=== PATIENT | female | born 1940 | race Caucasian/White ===

== ENCOUNTER 2019-06-19 15:28 | Outpatient (CLI) | payer MEDICARE, SELFPAY ==
--- NOTE | ~2019-06-19 | MM_ITS ---
EXAMINATION: MM screening brennan BI w diony HISTORY: Screening mammogram TECHNIQUE: Craniocaudal and mediolateral oblique 3-D tomosynthesis images were obtained and synthetic 2-D images were generated. CAD analysis was submitted and interpreted. COMPARISON: Comparison to multiple prior studies sequentially, with oldest reviewed study dated 11/2010. BREAST PARENCHYMAL COMPOSITION: Breast composed of scattered areas of fibroglandular density. FINDINGS: There is a focal mass in the upper outer quadrant of the right breast with developing calci fications. The left breast is stable without evidence for malignancy. IMPRESSION: 1. Left breast mass measuring 4 mm, upper outer quadrant with developing associated calcifications. 2. Additional mammographic views and possible breast ultrasound are recommended. BI-RADS Category 0: Incomplete: Needs additional imaging evaluation. Reviewed, dictated and finalized at location A. IMPRESSION: 1. Left breast mass measuring 4 mm, upper outer quadrant with developing associ ated calcifications. 2. Additional mammographic views and possible breast ultrasound are recommended . BI-RADS Category 0: Incomplete: Needs additional imaging evaluation.
== END 2019-06-19 15:29 | disposition home or self-care (01) ==
PROVIDERS: PCP Internal Medicine; Visit Provider Internal Medicine
DX: Z12.31 Encounter for screening mammogram for malignant neoplasm of breast (principal); R92.8 Other abnormal and inconclusive findings on diagnostic imaging of breast
CPT/HCPCS: 77063; 77067

== ENCOUNTER 2019-08-07 12:59 | Outpatient (CLI) | payer MEDICARE, SELFPAY ==
--- NOTE | ~2019-08-07 | MMUS_ITS ---
EXAMINATION: MM diagnostic mammo unilat RT, US breast RT limited HISTORY: Follow-up right breast mass and calcifications TECHNIQUE: Additional 3-D tomosynthesis images of the right breast were performed and synthetic 2-D i mages were generated. CAD analysis was submitted and interpreted. High resolution right breast ultras ound was performed. COMPARISON: 06/19/2019 FINDINGS: MAMMOGRAPHIC FINDINGS: There are scattered predominantly linear calcifications in the upper outer quadrant of the right [address]. There is ar 4 mm circumscribed radiolucent mass in the upper outer quadrant. No suspicious jake ectural distortion. ULTRASOUND: Limited right breast ultrasound: At 10:00, 6 cm from the nipple, there is a 3 mm cyst corresponding to the mass seen on ultrasound. No solid masses are identified. IMPRESSION: 1. Probable benign right breast calcifications. 3 mm simple cyst corresponding to the right breast ma ss. 2. Recommend 6 month follow-up diagnostic right mammogram. BI-RADS category 3, probably benign findings. Reviewed, dictated and finalized at location A. IMPRESSION: 1. Probable benign right breast calcifications. 3 mm simple cyst corresponding to the right breast mass. 2. Recommend 6 month follow-up diagnostic right mammogram. BI-RADS category 3, probably benign findings.
== END 2019-08-07 13:00 | disposition home or self-care (01) ==
LOC: ANHIMG 13:01
PROVIDERS: PCP Internal Medicine; Visit Provider Internal Medicine
DX: R92.8 Other abnormal and inconclusive findings on diagnostic imaging of breast (principal)
CPT/HCPCS: 76642; 77065

== ENCOUNTER → 2020-05-26 10:47 | Outpatient (CLI) | payer MEDICARE, SELFPAY ==
[2020-05-27 14:42] LABS: SARS-CoV-2 RNA PCR Negative
== END ==
PROVIDERS: PCP Internal Medicine; Visit Provider Internal Medicine
DX: R05 Cough (principal); Z20.822 Contact with and (suspected) exposure to COVID-19
CPT/HCPCS: C9803; U0003; U0005

== ENCOUNTER 2020-07-03 09:30 | Outpatient (CLI) | payer MEDICARE, SELFPAY ==
[2020-07-03 10:04] LABS: Basophils Absolute Auto 0.1 K/mm3 (0.0-0.1); Basophils Percent Auto 1.2 % (0.2-1.2); Eosinophils Absolute Auto 0.2 K/mm3 (0-0.3); Eosinophils Percent Auto 2.7 % (0-4.4); Hematocrit 43.5 % (37.0-47.0); Hemoglobin 14.4 g/dL (12.0-15.0); Immature Granulocyte Absolute 0.01 K/mm3 (0.00-0.031); Immature Granulocyte Percent A 0.2 % (0-0.5); Lymphocytes Absolute Auto 1.64 K/mm3 (0.9-3.2); Lymphocytes Percent Auto 27.7 % (18.3-44.2); Mean Corpuscular HGB Conc 33.1 g/dl (32-36); Mean Corpuscular Hemoglobin 28.6 pg (26-34); Mean Corpuscular Volume 86.3 fl (80-100); Mean Platelet Volume 9.9 fl (7.4-10.4); Monocytes Absolute Auto 0.7 K/mm3 (0.1-0.6); Monocytes Percent Auto 11.3 % (2.6-8.5); Neutrophils Absolute Auto 3.4 K/mm3 (1.3-6.7); Neutrophils Percent Auto 56.9 % (45.5-73.1); Platelet Count Result 201 k/mm3 (150-375); Red Blood Count 5.04 M/mm3 (4.2-5.4); Red Cell Distribution Width 13.4 % (11.5-14.5); White Blood Count 5.9 K/mm3 (4.5-10.0)
[2020-07-03 10:19] LABS: Alanine Aminotransferase 18 U/L (4-35); Albumin Level 3.9 g/dL (3.5-5.1); Alkaline Phosphatase 104 U/L (38-126); Anion Gap 2 mmol/L (8-16); Aspartate Amino Transferase 37 U/L (14-36); Bilirubin,Total 0.8 mg/dL (0.2-1.3); Blood Urea Nitrogen 13 mg/dL (7-17); Calcium 9.3 mg/dL (8.4-10.2); Carbon Dioxide 34 mmol/L (22-30); Chloride 103 mmol/L (98-107); Estimated Glomerular Filt Rate > 60; Glucose 137 mg/dL (65-105); Potassium 4.2 mmol/L (3.4-5.0); Sodium 139 mmol/L (137-145)
[2020-07-03 10:26] LABS: NT Pro B Type Natriuretic Pept 164 PG/ML (5-100)
== END 2020-07-03 09:31 | disposition home or self-care (01) ==
LOC: ANHLAB 09:35
PROVIDERS: PCP Internal Medicine; Visit Provider Internal Medicine Cardiovascular Disease
DX: R06.02 Shortness of breath (principal); I48.0 Paroxysmal atrial fibrillation; M79.89 Other specified soft tissue disorders
CPT/HCPCS: 36415; 80053; 83880; 84443; 85025

== ENCOUNTER 2020-07-04 12:15 | Outpatient (CLI) | payer MEDICARE, SELFPAY ==
--- NOTE | ~2020-07-04 | XR_ITS ---
XR chest 2V 07/04/2020 13:56 Indication: Shortness of breath. Dyspnea with exertion. Procedure: 2 view chest Comparison: 12/04/2018 Findings: Cardiomegaly with pulmonary vascular congestion. No focal air space disease, pulmonary david a, pleural effusion or suspected pneumothorax. Impression: 1: No acute cardiopulmonary disease. Reviewed, dictated and finalized at location B. Impression: 1: No acute cardiopulmonary disease.
--- NOTE | 2020-07-04 14:29 | WPDPFTINT ---
PFT Interpretation This is a pulmonary function test withspirometry, plethysmography and diffusing capacity. The test was performed and results interpreted in accordance with the 2019 and 2005 ATS/ERS Task Force guidelines respectively using the Global Lung Function Initiative-2012 reference equations. Patient demonstrated good effort and cooperation. Reproducibility criteria were met. The quality of the spirometry maneuver was Grade A. Findings: Spirometry: There is decreased maximal expiratory airflow at low lung volumes with a concave expiratory flow tracing. The contour the inspiratory flow tracing is normal. The FVC is 1.93 L, 72% predicted. The FEV1 is 1.24 L, 60% predicted. The FEV1: FVC ratio is 64%. Plethysmography: The total lung capacity is 5.75 L, 111% predicted. The functional residual capacity is 2.48 L, 83% predicted. The residual volume is 2.45 L, 102% predicted. Diffusing capacity: The absolute diffusion capacity is 11.1, 55% predicted. The diffusing capacity corrected for alveolar volume is 3.43, 83% predicted. Impression: There is a moderate obstructive abnormalityl. The lung volumes are normal. The absolute diffusing capacity is moderately decreased but normalizes when corrected for alveolar volume. There are no prior studies for comparison PFT Procedure Performed PFT Procedure Performed Plethysmography (Lung Vol) Diffusing Cap (DLCO) Spirometry w/o Bronchodil
== END 2020-07-04 12:16 | disposition home or self-care (01) ==
PROVIDERS: PCP Internal Medicine; Visit Provider Internal Medicine Cardiovascular Disease
DX: R06.02 Shortness of breath (principal); R94.2 Abnormal results of pulmonary function studies
CPT/HCPCS: 71046; 94375; 94726; 94729

== ENCOUNTER 2020-09-29 16:06 | Outpatient (CLI) | payer MEDICARE, SELFPAY ==
[2020-09-29 17:19] LABS: Anion Gap 8 mmol/L (8-16); Blood Urea Nitrogen 9 mg/dL (7-17); Calcium 9.1 mg/dL (8.4-10.2); Carbon Dioxide 28 mmol/L (22-30); Chloride 102 mmol/L (98-107); Estimated Glomerular Filt Rate > 60; Glucose 175 mg/dL (65-105); Sodium 138 mmol/L (137-145)
== END 2020-09-29 16:07 | disposition home or self-care (01) ==
PROVIDERS: PCP Internal Medicine; Visit Provider Nurse Practitioner Adult Health
DX: R60.0 Localized edema (principal)
CPT/HCPCS: 36415; 80048

== ENCOUNTER → 2020-11-24 09:47 | Outpatient (CLI) | payer MEDICARE, SELFPAY ==
[2020-11-25 01:23] LABS: SARS-CoV-2 RNA PCR Negative
== END ==
PROVIDERS: PCP Internal Medicine; Visit Provider Internal Medicine
DX: R05 Cough (principal); Z20.822 Contact with and (suspected) exposure to COVID-19
CPT/HCPCS: C9803; U0003; U0005

== ENCOUNTER 2020-11-24 16:01 | Emergency (ER) | payer MEDICARE, SELFPAY ==
--- NOTE | ~2020-11-24 | XR_ITS ---
EXAMINATION: XR chest 2V DATE: 11/24/2020 16:36 INDICATION: Shortness of breath. Productive cough. TECHNIQUE: Frontal and lateral views of the chest were obtained. COMPARISON: Chest 2 views 07/04/2020 FINDINGS: A calcified left lung nodule and calcified left hilar lymph nodes are consistent with old g ranulomatous disease. No pleural effusion or pneumothorax. Cardiomegaly is noted. IMPRESSION: 1. Cardiomegaly. Reviewed, dictated and finalized at location A. IMPRESSION: 1. Cardiomegaly.
[2020-11-24 16:11] VITALS: BP 187/83; PULSE 72; RESP 22; TEMP 36.8; O2SAT 95
--- NOTE | 2020-11-24 16:14 | ECG_ITS ---
Measurements Intervals [place] Rate: 71 P: 53 MI: 158 QRS: -6 QRSD: 82 T: 34 QT: 378 QTc: 413 Interpretive Statements SINUS RHYTHM ANTEROSEPTAL INFARCT, AGE INDETERMINATE CONSIDER INFERIOR INFARCT, AGE INDETERMINATE BASELINE ARTIFACT- I, II, III, AVR, AVL ABNORMAL ECG Electronically Signed On 11-24-2020 19:27:07 CDT by Gary Diana D.O.
[2020-11-24 16:38] LABS: Basophils Absolute Auto 0.1 K/mm3 (0.0-0.1); Basophils Percent Auto 1.2 % (0.2-1.2); Eosinophils Absolute Auto 0.4 K/mm3 (0-0.3); Eosinophils Percent Auto 4.7 % (0-4.4); Hematocrit 41.9 % (37.0-47.0); Hemoglobin 14.1 g/dL (12.0-15.0); Immature Granulocyte Absolute 0.02 K/mm3 (0.00-0.031); Immature Granulocyte Percent A 0.3 % (0-0.5); Lymphocytes Absolute Auto 1.98 K/mm3 (0.9-3.2); Mean Corpuscular HGB Conc 33.7 g/dl (32-36); Mean Corpuscular Hemoglobin 30.3 pg (26-34); Mean Corpuscular Volume 90.1 fl (80-100); Mean Platelet Volume 9.3 fl (7.4-10.4); Monocytes Percent Auto 13.5 % (2.6-8.5); Neutrophils Absolute Auto 4.2 K/mm3 (1.3-6.7); Neutrophils Percent Auto 54.3 % (45.5-73.1); Platelet Count Result 223 k/mm3 (150-375); Red Blood Count 4.65 M/mm3 (4.2-5.4); Red Cell Distribution Width 13.2 % (11.5-14.5); White Blood Count 7.6 K/mm3 (4.5-10.0)
[2020-11-24 17:10] LABS: Anion Gap 7 mmol/L (8-16); Blood Urea Nitrogen 10 mg/dL (7-17); Calcium 9.1 mg/dL (8.4-10.2); Carbon Dioxide 30 mmol/L (22-30); Chloride 103 mmol/L (98-107); Estimated CRCL calculation 70 ml/min; Estimated Glomerular Filt Rate > 60; Glucose 92 mg/dL (65-110); Sodium 140 mmol/L (137-145)
[2020-11-24 22:29] VITALS: BP 156/76; PULSE 73; O2SAT 91
[2020-11-24 22:52] VITALS: BP 176/91; PULSE 77; RESP 18; TEMP 37.2; O2SAT 98
[2020-11-24 22:54] VITALS: O2SAT 97
--- NOTE | 2020-11-24 23:27 | ED.URI ---
HPI - URI/Sore Throat General Chief Complaint: Shortness of Breath/Dyspnea Stated Complaint: diff breathing, covid tested this am. Time Seen by Provider: 11/24/20 22:49 Source: patient Mode of arrival: ambulatory Limitations: no limitations History of Present Illness HPI Narrative: Patient is a 80-year-old female complaining of cough, productive, clear sputum, nasal congestion and mild shortness of breath on exertion that started 1 week ago. Patient currently denies being short of breath. Patient denies any chest pain, abdominal pain, nausea, vomiting, diarrhea, fever or chills Related Data Home Medications Medication Instructions Recorded Confirmed latanoprost 0.005 % eye drops 1 drop EACH EYE DAILY 05/21/19 07/13/20 rivaroxaban 20 mg tablet 20 mg PO DAILY 05/21/19 07/13/20 timolol 0.5 % eye drops 1 drop EACH EYE Q12H 05/21/19 07/13/20 vit C 250 mg-vit E 90 mg-zinc 40 1 tablet PO BID 05/21/19 07/13/20 mg-copper 1 [id number] capsule Allergies Allergy/AdvReac Type Severity Reaction Status Date / Time No Known Allergies Allergy Verified 11/24/20 22:54 Review of Systems Review of Systems: All systems reviewed & are unremarkable except as noted in HPI and below Constitutional: Constitutional: Denies body ache(s), Denies chills, Denies excessive sweating, Denies fatigue, Denies fever(s), Denies headache(s), Denies lethargy, Denies malaise, Denies weakness and Denies weight loss Eyes: Eyes: Denies blurry vision, Denies change in vision and Denies loss of vision ENT: Denies dizziness, Denies ear discharge, Denies headache(s), Denies lip swelling, Denies epistaxis, Denies neck pain, Denies throat swelling and Denies tongue swelling Cardiovascular: Cardiovascular: Denies chest pain, Denies chest pain at rest, Denies chest pain with activity, Denies diaphoresis, Denies rapid heart rate, Denies edema, Denies irregular heart rhythm, Denies lightheadedness and Denies palpitations Respiratory: Respiratory: Denies chest congestion and Denies hemoptysis Gastrointestinal: Gastrointestinal: Denies abdominal pain, Denies melena, Denies hematochezia, Denies diarrhea, Denies nausea, Denies vomiting and Denies hematemesis Musculoskeletal: Musculoskeletal: Denies abnormal gait, Denies deformity, Denies joint swelling, Denies limited range of motion, Denies neck pain and Denies numbness Neurologic: Denies Abnormal speech present, Denies abnormal gait, Denies confusion, Denies dizziness, Denies headache(s), Denies focal weakness, Denies loss of vision, Denies numbness, Denies Other visual disturbances, Denies Sensory deficit (Neuro) and Denies weakness Psychiatric: Psychiatric: Denies confusion, Denies depression, Denies auditory hallucinations, Denies homicidal ideation and Denies suicidal ideation Endocrine: Endocrine: Denies cold intolerance, Denies excessive sweating, Denies fatigue, Denies heat intolerance and Denies palpitations Hematologic/Lymphatic: Hematologic/Lymphatic: Denies easy bleeding and Denies easy bruising Allergic/Immunologic: Allergic/Immunologic: Denies lip swelling, Denies throat swelling and Denies tongue swelling PMFSH Past Medical History Medical History Colonic polyp Family History Family History Mother Family history of glaucoma Family history of hearing loss, Onset Age: 98 Father Family history of diabetes mellitus in first degree relative Sibling Family history of macular degeneration Social History Social History Smoking status: Former smoker Second hand tobacco smoke exposure: Yes Smoking end date: 04/04/87 Alcohol intake: current Exam Const: General: cooperative, comfortable, no acute distress, well developed, alert and awake; No confusion Nutritional Appearance: obese Orientation/consciousness: or
[2020-11-25 01:16] VITALS: BP 147/89; PULSE 78; RESP 16; O2SAT 98
== END 2020-11-25 01:18 | disposition home or self-care (01) ==
PROVIDERS: Emergency Medicine; Emergency Provider Emergency Medicine; PCP Internal Medicine
DX: J06.9 Acute upper respiratory infection, unspecified (principal); Z86.010 Personal history of colon polyps; Z87.891 Personal history of nicotine dependence; R94.31 Abnormal electrocardiogram [ECG] [EKG]
CPT/HCPCS: 36415; 71046; 80048; 85025; 93005; 99284; C9803; U0003; U0005

== ENCOUNTER 2021-05-20 08:02 | Outpatient (CLI) | payer MEDICARE, SELFPAY ==
--- NOTE | 2021-05-27 21:26 | WPDSLEEPSTUD ---
Sleep Study Date of Study: 05/20/21 Ordering Provider: Dio Kramer MD Interpreting Physician: Susie Castelan DO Sleep Study Type: Split Polysomnogram Height: 1.65 m Weight: 112.945 kg Body Mass Index: 41.4 Neck Circumference (inches): 18 [place]: 4 Reason for Sleep Study Nighttime awakenings Sleep History The patient is a 81-year-old female with COPD, anxiety, hypertension, hypothyroidism, macular degeneration and glaucoma, GERD, paroxysmal AFib, pulmonary hypertension and morbid obesity that had a split night study ordered by her waredresser. The patient rarely awakens from sleep short of breath. She rarely awakens at night with heartburn, belching or cough. She denies snoring loud enough that others plane. She denies waking up gasping for air throughout the night. She occasionally has breathing problems at night observed by herself or others. She denies sweating excessively at night. She denies having heart palpitations or irregular heartbeats during the night. She frequently falls asleep during the day. She denies sleep paralysis, cataplexy and hypnagogic / hypnopompic hallucinations. She denies having nightmares. She occasionally remembers her dreams. She denies having thoughts racing through her mind. She occasionally feels sad or depressed. She frequently has anxiety. She denies noticing parts of her body jerk. She denies kicking during the night. She frequently has crawling aching feelings in her legs and frequently has leg pain during the night. She denies grinding her teeth during sleep but will rarely awakened with morning doff pain. She is frequently bothered by pain during the day. She frequently wakes up feeling stiff in the morning. She frequently wakes up with Sore a garrido muscles. She frequently wakes up with pain in her neck, spine and other joints. She goes to bed between 8 and 8:30 p.m. on the weekdays and between 9 and 10:00 p.m. on the weekends. She is unsure how long it takes her to fall asleep. She wakes up 2 or 3 times throughout the night. When she wakes up, she will watch television. She can take anywhere from 30 minutes to 2 hours to fall back asleep. She wakes up between 5 and 6:00 a.m. on weekdays and between 7 and 8:00 a.m. on the weekends. She typically gets 2 or 3 hours of sleep per night. She will stay in bed for 10-15 minutes after waking up in the morning. She currently lives alone. She denies consuming any caffeinated beverages within 2 hours of bedtime. She denies at engaging in physical exercise before bedtime. She will watch television and read before falling asleep. She drinks 2 caffeinated beverages per day. She quit smoking cigarettes 30 years ago. She denies alcohol and recreational drug use. [facility] Past Medical History Medical History Atrial fibrillation Colonic polyp Essential (primary) hypertension Gastro-esophageal reflux disease without esophagitis Hypothyroidism Type 2 diabetes mellitus without complications Family History Family History Mother Family history of glaucoma Family history of hearing loss, Onset Age: 98 Father Family history of diabetes mellitus in first degree relative Sibling Family history of macular degeneration Social History Social History Smoking status: Former smoker Second hand tobacco smoke exposure: Yes Smoking end date: 04/04/87 Alcohol intake: current Medications Home Medications Medication Instructions Recorded Confirmed Type metoprolol tartrate 25 mg tablet 25 mg PO BID #180 tablet 04/05/19 05/05/21 Rx alprazolam 0.5 mg tablet 0.5 mg PO BID PRN #40 tablet 04/06/19 05/05/21 Rx escitalopram oxalate 10 mg tablet 10 mg PO DAILY #90 tablet 04/06/19 05/05/21 Rx latanoprost 0.005 % eye drops 1 drop EACH EYE DAILY 05/21/19
[2021-05-28 16:35] VITALS: BMI 41.4
== END 2021-05-21 06:40 | disposition home or self-care (01) ==
LOC: ANHCSM 08:03
PROVIDERS: PCP Internal Medicine; Visit Provider Internal Medicine Pulmonary Disease
DX: G47.10 Hypersomnia, unspecified (principal); G47.33 Obstructive sleep apnea (adult) (pediatric)
CPT/HCPCS: 95811

== ENCOUNTER 2021-05-22 12:30 | Outpatient (CLI) | payer MEDICARE, SELFPAY ==
[2021-05-22 12:50] VITALS: PULSE 79; O2SAT 95
[2021-05-22 12:55] VITALS: PULSE 95; O2SAT 92
[2021-05-22 13:06] VITALS: PULSE 72; O2SAT 95
--- NOTE | 2021-05-22 13:06 | HOMEO2EVAL ---
Evaluation was performed at [facility] Home Oxygen Evaluation RC: Home Oxygen (O2) Evaluation Start: 05/22/21 13:05 Freq: Status: Active Protocol: RPE Activity Type Activity Date Activity User E-Sign Co-Sign Detail Recorded Client Recorded Date Recorded By Document 05/22/21 12:50 QUINTIN [id number] 05/22/21 13:06 QUINTIN Document 05/22/21 12:55 QUINTIN [email or web address] 05/22/21 13:06 QUINTIN Document 05/22/21 13:06 QUINTIN [id number] 05/22/21 13:06 QUINTIN 05/22/21 05/22/21 05/22/21 12:50 12:55 13:06 Home O2 Evaluation Test Phase Resting Exercise Resting Oxygen Delivery Room Air Room Air Room Air Pulse Oximetry (90-100 %) 95 92 95 Pulse Rate (60-100 beats/min) 79 95 72 Home Oxygen Evaluation Comments No home O2 needed at this time. Treatment Charges O2 Evaluation - Outpatient
== END 2021-05-22 12:31 | disposition home or self-care (01) ==
PROVIDERS: PCP Internal Medicine; Visit Provider Internal Medicine Pulmonary Disease
DX: R06.02 Shortness of breath (principal)
CPT/HCPCS: 94618

== ENCOUNTER 2021-06-30 16:20 | Emergency (ER) | payer MEDICARE, SELFPAY ==
--- NOTE | ~2021-06-30 | XR_ITS ---
EXAMINATION: XR knee LT min 4V DATE: 06/30/2021 17:22 INDICATION: Left calf pain. Left knee pain. TECHNIQUE: 4 views of left knee were obtained. COMPARISON: Left knee radiographs 08/07/2013 FINDINGS: There is varus angulation at the knee. No fracture. There is moderate osteoarthritis of med ial compartment and mild osteoarthritis of lateral and patellofemoral compartments. There is a small knee joint effusion. IMPRESSION: 1. Moderate left knee osteoarthritis. 2. Small left knee joint effusion. Reviewed, dictated and finalized at location A.
--- NOTE | ~2021-06-30 | US_ITS ---
EXAMINATION: US venous doppler [facility] DATE: 06/30/2021 17:16 INDICATION: Left lower limb pain. TECHNIQUE: Grayscale ultrasound images without and with compression and Doppler ultrasound images of the left lower extremity veins were obtained. COMPARISON: Ultrasound 12/05/2018 FINDINGS: The visualized portions of left common femoral vein, profunda (deep) femoral vein, femoral vein, popl iteal vein, peroneal veins, posterior tibial veins, and greater saphenous vein outflow are patent. IMPRESSION: 1. No deep venous thrombosis. Reviewed, dictated and finalized at location A.
[2021-06-30 16:23] VITALS: BP 153/104; PULSE 75; RESP 18; TEMP 36.9; O2SAT 100
--- NOTE | 2021-06-30 16:53 | ED.LOWEXIN ---
HPI - Extremity Injury (Lower) General Chief Complaint: Extremity Injury, Lower Stated Complaint: left leg pain Time Seen by Provider: 06/30/21 16:53 Source: patient Mode of arrival: ambulatory Limitations: no limitations History of Present Illness HPI Narrative: Patient is a 81-year-old female with a history of hypertension presenting to the emergency department for evaluation of left posterior knee pain over the past several weeks. Pain is aching in nature, sharp, worse with movement radiation into the left posterior knee. No associated leg swelling, bruising, redness. No linear streaking that the patient has noticed. No recent fall or injury. Patient states she has a primary care physician appointment scheduled, but was hesitant to bring this up due to the fact that it occurred many weeks ago. Patient states she decided to seek care today because she is having difficulty sleeping due to the pain. Patient states she is able to move the knee, denies any significant swelling or bruising. She denies fever, chills, nausea or vomiting. She reports a history of arthritis. She has a history of right knee replacement. She denies any numbness or weakness. She denies any limb lateral swelling, redness, warmth. No history of skin infection in the past. No wounds. Patient has been ambulatory but does report pain with ambulation. Patient is followed with Dr. Orona in the past. Patient denies any hip pain or lower back pain. Related Data Home Medications Medication Instructions Recorded Confirmed latanoprost 0.005 % eye drops 1 drop EACH EYE DAILY 05/21/19 06/25/21 rivaroxaban 20 mg tablet 20 mg PO DAILY 05/21/19 06/25/21 timolol 0.5 % eye drops 1 drop EACH EYE Q12H 05/21/19 06/25/21 vit C 250 mg-vit E 90 mg-zinc 40 1 tablet PO BID 05/21/19 06/25/21 mg-copper 1 [id number]-ivuyoc-zlaqcu capsule Allergies Allergy/AdvReac Type Severity Reaction Status Date / Time No Known Allergies Allergy Verified 06/25/21 10:43 Review of Systems Review of Systems: CONSTITUTIONAL: Denies fever, chills, or sweats. EYES: Denies visual changes, redness, or discharge. ENT: Denies rhinorrhea, congestion, sore throat, or otalgia. CARDIOVASCULAR: Denies chest pain, palpitations, or edema. RESPIRATORY: Denies cough or dyspnea. GASTROINTESTINAL: Denies abdominal pain, nausea, vomiting, or diarrhea. GENITOURINARY: Denies dysuria or hematuria. SKIN: Denies rash or itching. MUSCULOSKELETAL: Denies back pain, reports anterior and posterior left knee pain, denies current left thigh pain NEUROLOGIC: Denies headache, numbness, or weakness. [facility] Past Medical History Medical History Atrial fibrillation Colonic polyp Essential (primary) hypertension Gastro-esophageal reflux disease without esophagitis Hypothyroidism Type 2 diabetes mellitus without complications Family History Family History Mother Family history of glaucoma Family history of hearing loss, Onset Age: 98 Father Family history of diabetes mellitus in first degree relative Sibling Family history of macular degeneration Social History Social History Smoking status: Former smoker Second hand tobacco smoke exposure: Yes Smoking end date: 04/04/87 Alcohol intake: current Exam Narrative: GENERAL: Awake, alert, conversant HEAD: Normocephalic, atraumatic. EYES: PERRLA and EOMI. ENT: Nares clear, no rhinorrhea or epistaxis. Mucous membranes moist. NECK: Supple. CHEST: No respiratory distress, breathing even and non labored HEART: Regular rate, sinus rhythm ABDOMEN:Non distended, non tender EXTREMITIES: Pt able to range the left knee. Full active range of motion without limitation. Patella is midline. No tenderness on exam. Patient without significant crepitus, full flexion extension without limitation.
[2021-06-30] MEDS: traMADol HCL (*CRX) 50 MG TABLET 25 MG PO (18:18)
[2021-06-30] MEDS: predniSONE 20 MG TABLET 60 MG PO (18:19)
[2021-06-30 18:32] VITALS: BP 141/56; PULSE 78; RESP 14; O2SAT 98
[2021-06-30 18:34] VITALS: TEMP 36.9
== END 2021-06-30 18:34 | disposition home or self-care (01) ==
PROVIDERS: Emergency Provider Emergency Medicine; PCP Internal Medicine
DX: M19.112 Post-traumatic osteoarthritis, left shoulder (principal); M25.462 Effusion, left knee; I48.91 Unspecified atrial fibrillation; I10 Essential (primary) hypertension; E11.9 Type 2 diabetes mellitus without complications; E03.9 Hypothyroidism, unspecified; K21.9 Gastro-esophageal reflux disease without esophagitis; Z96.651 Presence of right artificial knee joint; Z86.010 Personal history of colon polyps; Z87.891 Personal history of nicotine dependence; Z79.01 Long term (current) use of anticoagulants; M79.605 Pain in left leg
CPT/HCPCS: 73564; 93971; 99284; A9270; J7512

== ENCOUNTER → 2021-09-02 09:03 | Outpatient (CLI) | payer MEDICARE, SELFPAY ==
--- NOTE | ~2021-09-02 | MR_ITS ---
EXAMINATION: MR knee LT wo con DATE: 09/02/2021 09:57 INDICATION: Left knee pain TECHNIQUE: Magnetic resonance imaging (MRI) of the left knee was performed without intravenous contra st. Sequences included coronal PD-weighted FSE, coronal PD-weighted FS FSE, sagittal T2-weighted FSE , sagittal PD-weighted FS FSE and axial PD weighted fat saturated FSE. COMPARISON: None. FINDINGS: Medial compartment: Complex tear of the medial meniscus extending from the anterior to the posterior horn with medial ext rusion of the small macerated appearing meniscal body. Extensive full/near full-thickness cartilage l oss throughout the anterior to central weightbearing medial femoral condyle with scattered mild corti neftali irregularity and subarticular edema-like signal change and prominent anterior two thirds of the m edial tibial plateau with early remodeling of the articular cortex additional mild subarticular edema -like signal change. Lateral compartment: Lateral meniscus is normal. Small region of deep chondral ulceration involving greater than 50% the c artilage thickness along the posterior rim of the lateral tibial plateau. Shallow chondral fissuring along the central aspect of the lateral tibial plateau. Patellofemoral compartment: Deep chondral ulceration at the central aspect of the patellar apical ridge and medial patellar facet with additional mild underlying subarticular edema-like signal change. Diffuse partial thickness tro chlear cartilage loss with generally smooth chondral surface and without degenerative subchondral donny nges. Ligaments and tendons: The anterior cruciate ligament demonstrates a normal angle relative to Blum[place]at line. It appears th ickened with increased intrasubstance signal surrounding intact appearing linear fibers with a celer y stalk appearance consistent with mucoid degeneration. Thickening and more prominent increased intr asubstance signal extending along the posterior cruciate consistent with a few lax appearing ligament fibers along the anterior margin consistent with at least partial tear. The medial collateral ligame nt and fibular collateral ligament complex are normal. Mild tendinopathy at the proximal distal kelly lar tendon. The quadriceps tendon is normal. The visualized medial and lateral hamstring tendons as w ell as the iliotibial band are normal. Fluid: Small knee joint effusion with fluid and mild synovitis at the suprapatellar pouch. No loose osteocho ndral bodies identified. Osseous/other: Additional mild osteoarthritis subarticular edema at the proximal tibiofibular articulation. No fract ure or abnormal marrow replacing process. IMPRESSION: 1. 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 2. Mild osteoarthritis in the lateral and patellofemoral compartments. 3. At least partial tear of the posterior cruciate ligament 4. Mucoid degeneration of the anterior cruciate ligament without definitive tear. Correlate with phys ical exam to assess for degree of functional integrity. Reviewed, dictated and finalized at location B. IMPRESSION: 1. Complex medial meniscal tear with severe osteoarthritis and extensive high-g rade chondromalacia in the medial compartment. 2. Mild osteoarthritis in the lateral and patellofemoral compartments. 3. At least partial tear of the posterior cruciate ligament 4. Mucoid degeneration of the anterior cruciate ligament without definitive tea r. Correlate with physical exam to assess for degree of functional integrity.
== END ==
PROVIDERS: PCP Internal Medicine; Visit Provider Nurse Practitioner
DX: M25.562 Pain in left knee (principal); S83.232A Complex tear of medial meniscus, current injury, left knee, initial encounter; M94.262 Chondromalacia, left knee; M17.12 Unilateral primary osteoarthritis, left knee; S83.522A Sprain of posterior cruciate ligament of left knee, initial encounter
CPT/HCPCS: 73721

== ENCOUNTER 2021-09-03 09:15 | Outpatient (CLI) | payer MEDICARE, SELFPAY ==
--- NOTE | ~2021-09-03 | US_ITS ---
EXAMINATION: US venous doppler [facility] DATE: 09/03/2021 09:46 INDICATION: Left lower limb pain TECHNIQUE: Grayscale ultrasound images without and with compression and Doppler ultrasound images of the left lower extremity veins were obtained. COMPARISON: 06/30/2021 FINDINGS: The visualized portions of left common femoral vein, profunda (deep) femoral vein, femoral vein, popl iteal vein, peroneal veins, posterior tibial veins, gastrocnemius vein and greater saphenous vein out flow remain patent. IMPRESSION: 1. No deep venous thrombosis in the left lower limb. Reviewed, dictated and finalized at location B.
== END 2021-09-03 09:16 | disposition home or self-care (01) ==
PROVIDERS: PCP Internal Medicine; Visit Provider Orthopaedic Surgery
DX: M79.605 Pain in left leg (principal)
CPT/HCPCS: 93971

== ENCOUNTER 2021-10-22 14:00 | Outpatient (RCR) | payer MEDICARE, SELFPAY ==
--- NOTE | 2021-09-24 15:22 | PTOPEVAL ---
PHYSICAL THERAPY INITIAL EVALUATION. Thank you for referring Annette Barone to [facility].? The patient is scheduled to be seen for therapy? 1x/week for 4 weeks. Please review, sign, date and return this plan of care MARGARITA. I agree with and certify that the following plan of care is medically necessary. Referring Physician Date Attending Provider: Carson Hyde APN *PT Outpatient Evaluation Start: 09/24/21 Evaluation Information Diagnosis L leg pain Onset ~2 months Additional Evaluation Detail Pt ambulates into the clinic using a wooden walking stick, she states she uses a rollator at home Subjective Information Pt reports L leg pain, mainly Query Text:As Reported By Patient/ behind the knee. She states Family sometime this goes down her calf or up the back of her thigh. Pt states sometime when her leg is propped up she has no pain, she reports most of her knee pain is when she is walking or getting in/out of a car. She states ice or heat both help for a little bit. Pain Assessment Left Knee(s) Reported Pain Level 2 Pain Description Pressure,With Movement Lowest Pain Intensity 0 Greatest Pain Intensity 10 Lumbar ROM Lumbar Flexion (0-90) 50 Lumbar Flexion Active Ankle Lumbar Extension (0-40) 30 Lateral Flexion able to reach 1in above Query Text:Active Hands to: lateral knee joint bilat Lateral Rotation Right (0-45) 30 Lateral Rotation Left (0-45) 30 Lumbar ROM 75% of Normal Lower Extremity Range of Motion Gross Lower Extremity Range of Motion R knee active flexion 105 Comments R knee active flexion 110 Lower Extremity Muscle Strength Testing Gross Lower Extremity Strength joey hips 4/5 R knee flexion/extension 4+/5 L knee flexion/extension 4/5 Muscle Length Testing Left Hamstring Length -30 Right Hamstring Length -30 Posture Lumbar Spine Posture Increased Lordosis Palpation Assessment Palpation along medial joint line, posterior knee, mild reports with moderate pressure on lumbar paraspinals Special Test-Spine Crossed Straight Leg Raise Test Negative Right,Negative Left Straight Leg Raise Test Negative Right,Negative Left Balance Assessment Timed
--- NOTE | 2021-10-22 14:40 | PTOPEVAL ---
PHYSICAL THERAPY PROGRESS REPORT AND DISCHARGE SUMMARY. Thank you for referring Annette Barone to [facility].? The patient is to be discharged from skilled therapy services at this time. Please review, sign, date and return this plan of care MARGARITA. I agree with and certify that the following plan of care is medically necessary. Referring Physician Date Attending Provider: Carson Hyde APN Assessment Status Discharge Evaluation Information Diagnosis L leg pain Onset ~2 months Subjective Information Pt states her back and knee Query Text:As Reported By Patient/ pain are the same as when she Family started therapy. She states it is hard to remember to do here exercises and not has done them very often. She reports leg pain along the lateral side of her leg. Pt states when walking up/down her hallway her leg feels at its best, she also reports increasing activity does not sound like the answer to her pain. Therapist noted excess fluid in leg this date, pt states she has compression socks but does not wear them. Pain Assessment Self Report Pain Assessment Left Knee(s) Reported Pain Level 8 Lowest Pain Intensity 3 Greatest Pain Intensity 8 Lower Extremity Range of Motion Gross Lower Extremity Range of Motion L knee active flexion 110 Comments L knee active flexion 118 Lower Extremity Muscle Strength Testing Gross Lower Extremity Strength joey hips 4/5 R knee flexion/extension 4+/5 L knee flexion/extension 4/5 L knee -18 deg from terminal knee extension with short sitting LAQ Palpation Assessment Palpation none reported Balance Assessment Time Up Go (TUG) Comments Initially: 15s with walking stick 10/22/21: 27s with walking stick 5 Time Sit to Stand 5 Time Sit to Stand Comments Initially: 45s without the use Query Text:Normative Data: If Greater of UEs Than 15 Seconds, 74% Increase Risk for 10/22/21: 38s with use of UEs, Recurrent Falls pt unable to complete single sit<>standing without UE support Gait Assessment Gait Pattern Wide Based Gait Gait Pattern Observed Decreased Stride
== END 2021-11-05 11:58 | disposition home or self-care (01) ==
LOC: ANHPT 14:00
PROVIDERS: PCP Internal Medicine; Referring Provider Nurse Practitioner; Visit Provider Nurse Practitioner
DX: M54.40 Lumbago with sciatica, unspecified side (principal)
CPT/HCPCS: 97110; 97161; 97530

== ENCOUNTER 2021-11-13 12:58 | Outpatient (CLI) | payer MEDICARE, SELFPAY ==
--- NOTE | ~2021-11-13 | XR_ITS ---
EXAMINATION: XR lg joint inject/asp w image DATE: 11/13/2021 14:03 INDICATION: Left knee pain. TECHNIQUE: A time-out was performed to verify the patient's name, date of , and procedure to b e performed. The procedure including the risks, benefits, and alternatives was discussed with the pat ient. Risks discussed included bleeding and infection. The patient understood the risks and agreed to proceed. The skin overlying the left proximal tibiofibular joint was prepped and draped in usual st erile fashion. Anesthetic was administered with 1% lidocaine subcutaneously. A 22 G needle was adva nced under fluoroscopic guidance into the joint. Subsequently, injectate consisting of 1 mL 40 mg/mL Kenalog and 1 mL 1% lidocaine was instilled. The needle was removed and the entry site was cleaned and dressed. There were no immediate complications. Fluoroscopy exposure time was 0.1 minutes. The t otal number of images was 1. FINDINGS: Real-time fluoroscopy demonstrates the needle in the left proximal tibiofibular joint. Elaina ent's pain prior to procedure:11/11. Patient's pain following the procedure: 05/14. IMPRESSION: 1. Fluoroscopy guided left proximal tibiofibular joint injection of local anesthetic and steroid with decrease in the patient's presenting pain. Reviewed, dictated and finalized at location A. IMPRESSION: 1. Fluoroscopy guided left proximal tibiofibular joint injection of local anest hetic and steroid with decrease in the patient's presenting pain.
== END 2021-11-13 12:59 | disposition home or self-care (01) ==
PROVIDERS: PCP Internal Medicine; Visit Provider Nurse Practitioner
DX: M25.562 Pain in left knee (principal)
CPT/HCPCS: 20610; 77002; J3301; Q9966

== ENCOUNTER 2022-04-22 08:25 | Outpatient (CLI) | payer MEDICARE, SELFPAY ==
--- NOTE | ~2022-04-22 | US_ITS ---
EXAMINATION: US art doppler w press LE BI DATE: 04/22/2022 09:16 INDICATION: Peripheral vascular disease, unspecified. TECHNIQUE: Segmental pressures and plethysmographic and Doppler waveforms of the brachial and lower e xtremity arteries were obtained. COMPARISON: None. FINDINGS: Right and left brachial artery pressures of 148 mm Hg and 138 mm Hg, respectively, are concordant (no rmal difference <= 30 mmHg). The right thigh pressures and ankle pressures could not be measured due to inability to cuff occlude the arteries. The right ankle-brachial index (CHRISTAL) could not be measured. The right great toe-brachia l index (TBI) is 0.95 (normal >= 0.65). Arterial Doppler waveforms are triphasic in common femoral ar moses and biphasic from superficial femoral artery to the ankle. The left thigh pressures and ankle pressures could not be measured due to inability to cuff occlude t he arteries. The left CHRISTAL could not be measured. The left TBI is 1.05. Arterial Doppler waveforms are at least triphasic in common femoral artery and biphasic from superficial femoral artery to the ankl e. IMPRESSION: 1. Normal TBIs and nondiagnostic ABIs. No significant arterial occlusive disease. Reviewed, dictated and finalized at location A. STRIAL PIPEFITTER JOURNEYMAN IMPRESSION: 1. Normal TBIs and nondiagnostic ABIs. No significant arterial occlusive diseas e.
== END 2022-04-22 08:26 | disposition home or self-care (01) ==
PROVIDERS: PCP Internal Medicine; Visit Provider Internal Medicine
DX: I73.9 Peripheral vascular disease, unspecified (principal)
CPT/HCPCS: 93923

== ENCOUNTER 2022-08-12 10:04 | Outpatient (CLI) | payer MEDICARE, SELFPAY ==
[2022-08-12 10:40] LABS: Anion Gap 5 mmol/L (8-16); Blood Urea Nitrogen 9 mg/dL (7-17); Carbon Dioxide 32 mmol/L (22-30); Chloride 100 mmol/L (98-107); Estimated Glomerular Filt Rate > 60; Glucose 130 mg/dL (65-110); Potassium 4.1 mmol/L (3.4-5.0); Sodium 137 mmol/L (137-145)
== END 2022-08-12 10:05 | disposition home or self-care (01) ==
LOC: ANHLAB 10:06
PROVIDERS: PCP Internal Medicine; Visit Provider Internal Medicine Cardiovascular Disease
DX: I48.0 Paroxysmal atrial fibrillation (principal); R06.02 Shortness of breath; M79.89 Other specified soft tissue disorders
CPT/HCPCS: 36415; 80048

== ENCOUNTER 2022-08-18 13:34 | Outpatient (CLI) | payer MEDICARE, SELFPAY ==
[2022-08-18 14:32] LABS: NT Pro B Type Natriuretic Pept 147 pg/mL (19.9-100)
== END 2022-08-18 13:35 | disposition home or self-care (01) ==
PROVIDERS: PCP Internal Medicine; Visit Provider Internal Medicine Cardiovascular Disease
DX: R06.02 Shortness of breath (principal); I48.0 Paroxysmal atrial fibrillation; M79.89 Other specified soft tissue disorders
CPT/HCPCS: 36415; 83880

== ENCOUNTER 2023-01-26 14:03 | Inpatient (IN) | payer MEDICARE, SELFPAY ==
[2023-01-26] VITALS (31 sets, daily range): BP systolic 86–157; BP diastolic 42–139; PULSE 81–157; RESP 14–32; TEMP 36.1–36.5; O2SAT 92–100; BMI 41.6
--- NOTE | ~2023-01-26 | US_ITS ---
EXAMINATION: US renal BI DATE: 01/27/2023 12:40 INDICATION: Acute kidney injury. TECHNIQUE: Multiple ultrasound grayscale images of the kidneys were obtained. COMPARISON: None. FINDINGS: Sensitivity is decreased by obesity. The right kidney measures 13.2 x 5.1 x 5.6 cm. The left kidney m easures 11.4 x 6.3 x 4.6 cm. The kidneys demonstrate normal parenchymal echogenicity. There is no hyd ronephrosis. The bladder is decompressed. IMPRESSION: 1. Normal kidneys. No hydronephrosis. Reviewed, dictated and finalized at location E.
--- NOTE | ~2023-01-26 | XR_ITS ---
XR chest 1V portable DATE: 01/29/2023 06:09 INDICATION: Shortness of breath. Acute renal insufficiency TECHNIQUE: Portable AP chest on 01/29/2023 at 0606 hours COMPARISON: Portable AP chest on 01/28/2023 at 1042 hours FINDINGS: Dual lumen right internal jugular central venous catheter tip is situated near the superior cavoatrial junction. Cardiomegaly. Aortic calcification and unfolding. Mild right pleural effusion. There are bilateral predominantly lower lung infiltrates and/or atelecta sis Diffuse osteopenia. IMPRESSION: Right internal jugular dialysis catheter tip near superior cavoatrial junction Cardiomegaly Bilateral predominantly lower lung infiltrates and/atelectasis, small right pleural effusion Reviewed, dictated and finalized at location A. IMPRESSION: Right internal jugular dialysis catheter tip near superior cavoatri al junction Cardiomegaly Bilateral predominantly lower lung infiltrates and/atelectasis, small right ple ural effusion
--- NOTE | ~2023-01-26 | XR_ITS ---
EXAMINATION: XR chest 1V portable DATE: 01/28/2023 08:10 INDICATION: Hypotension. TECHNIQUE: A single frontal view of the chest was obtained. COMPARISON: Chest 2 views 01/26/2023 FINDINGS: There is a small right pleural effusion. There is mild atelectasis at right lung base. A ca lcified left lung nodule and calcified left hilar lymph nodes are consistent with old granulomatous d isease. No pneumothorax. Cardiomegaly is noted. IMPRESSION: 1. Small right pleural effusion. 2. Cardiomegaly. Reviewed, dictated and finalized at location E.
--- NOTE | ~2023-01-26 | XR_ITS ---
XR chest 2V 01/26/2023 14:51 Indication: New onset of atrial fibrillation Procedure: AP and lateral views of the chest Comparison: Comparison to multiple prior studies sequentially, with oldest reviewed study dated 09/28. Findings: Cardiomegaly. No focal air space disease, pulmonary edema, pleural effusion or suspected pn eumothorax. There is atherosclerosis of the aorta. Impression: 1: No acute cardiopulmonary disease. Reviewed, dictated and finalized at location B. Impression: 1: No acute cardiopulmonary disease.
--- NOTE | ~2023-01-26 | XR_ITS ---
EXAMINATION: XR chest port-a-cath/central DATE: 01/28/2023 11:00 INDICATION: Central line placement. TECHNIQUE: A single frontal view of the chest was obtained on 2 radiographs. COMPARISON: Chest single view 01/28/2023 at 7:59 AM FINDINGS: Saige B lines are noted, consistent mild pulmonary edema. A calcified left lung nodule and calcified left hilar lymph nodes are consistent with old granulomatous disease. There is a small rig ht pleural effusion. No pneumothorax. Cardiomegaly is noted. A right internal jugular central venous catheter is seen with tip at the superior cavoatrial junction. IMPRESSION: 1. Central line tip at the superior cavoatrial junction. 2. Mild pulmonary edema. 3. Stable small right pleural effusion. 4. Cardiomegaly. Reviewed, dictated and finalized at location E.
--- NOTE | 2023-01-26 14:06 | ECG_ITS ---
Measurements Intervals [place] Rate: 127 P: [place]: 0 QRS: 170 QRSD: 94 T: 16 QT: 282 QTc: 411 Interpretive Statements ATRIAL FIBRILLATION WITH RAPID VENTRICULAR RESPONSE BASELINE ARTIFACT POSSIBLE RIGHT VENTRICULAR HYPERTROPHY [SOME/ALL OF: PROMINENT R IN V1, LATE TRANSITION, RAD, MARCELO, SSS] POOR R-WAVE PROGRESSION, CANNOT RULE OUT OLD aNTEROSEPTAL MYOCARDIAL INFARCTION COMPARED TO ECG 11/24/2020 16:29:28 ATRIAL FIBRILLATION NOW PRESENT Electronically Signed On 01-26-2023 20:32:57 CDT by Mary Hamilton M.D.
--- NOTE | 2023-01-26 15:42 | ED.ARRPALP ---
HPI - Arrhythmia/Palpitations General Chief Complaint: Arrhythmia/Palpitations Stated Complaint: afib rvr Time Seen by Provider: 01/26/23 14:36 History of Present Illness HPI narrative: 82-year-old female history of atrial fibrillation, hypertension, hypothyroidism, type 2 diabetes, CHF presents to the emergency room for evaluation of A-fib with RVR. Patient was at Dr. Hamilton's office having an echo completed when she was found to have heart rate in the 130s. On presentation to the emergency room, patient has no complaints of chest pain or palpitations. Related Data Home Medications Medication Instructions Recorded Confirmed latanoprost 0.005 % eye drops 1 drop ophthalmic (eye) DAILY 05/21/19 10/18/22 rivaroxaban 20 mg tablet (Xarelto) 20 mg PO DAILY 05/21/19 10/18/22 timolol 0.5 % eye drops 1 drop ophthalmic (eye) Q12H 05/21/19 10/18/22 vit C 250 mg-vit E 90 mg-zinc 40 1 tablet PO BID 05/21/19 10/18/22 mg-copper 1 vd-xwockx-vrxlal capsule (PreserVision AREDS-2) furosemide 40 mg tablet (Lasix) 40 mg PO QAM 07/08/21 10/18/22 potassium chloride 20 mEq 20 meq PO DAILY 07/08/21 10/18/22 tablet,extended release vitamin B complex (B 1 tablet PO DAILY 07/08/21 10/18/22 Complex-Vitamin B12 tablet) Allergies Allergy/AdvReac Type Severity Reaction Status Date / Time No Known Allergies Allergy Verified 10/18/22 10:29 Review of Systems Review of Systems: CONSTITUTIONAL: Denies fever, chills, or sweats. EYES: Denies visual changes, redness, or discharge. ENT: Denies rhinorrhea, congestion, sore throat, or otalgia. CARDIOVASCULAR: Denies chest pain, palpitations, reports lower extremity edema RESPIRATORY: Reports dyspnea. GASTROINTESTINAL: Denies abdominal pain, nausea, vomiting, or diarrhea. GENITOURINARY: Denies dysuria or hematuria. SKIN: Denies rash or itching. MUSCULOSKELETAL: Denies back pain, joint pain, or myalgia. NEUROLOGIC: Denies headache, numbness, dizziness, or weakness. PSYCHIATRIC: Denies anxiety or depression. [facility] Past Medical History Medical History Atrial fibrillation Colonic polyp Essential (primary) hypertension Gastro-esophageal reflux disease without esophagitis Glaucoma Hypothyroidism Type 2 diabetes mellitus without complications Surgical History Surgical History History of appendectomy History of right knee joint replacement Family History Family History Mother Family history of glaucoma Family history of hearing loss, Onset Age: 98 Father Family history of diabetes mellitus in first degree relative Sibling Family history of macular degeneration Social History Social History Smoking status: Former smoker Second hand tobacco smoke exposure: Yes Smoking end date: 04/04/87 Alcohol intake: current Substance use: never Lack of Transportation: No Lack of Food: Never True Current Housing: I Have Housing Concerned About Future Housing: No Difficulty Paying Gas/Electric Bills: No Difficulty Paying for Meds: No Currently Unemployed: No Education: High School Diploma/GED Difficulty w/ Childcare or Family Care: No Living arrangements: alone Occupation/Education: retired Gender identity (if verbalized by the patient): Female Exam Narrative: GENERAL: Well-appearing, well-nourished, no physical limitations, and in no acute distress. HEAD: Normocephalic, atraumatic. EYES: Conjunctivae normal, PERRLA and EOMI. CHEST: Clear to auscultation. No respiratory distress. No wheezes rales or rhonchi. HEART: Irregularly irregular and tachycardic. No murmur heard. Normal peripheral pulses. EXTREMITIES: Normal range of motion. +3 pitting edema. No clubbing or cyanosis SKIN: Warm, dry, no rash. No noted wounds NEURO: No
[2023-01-26] MEDS: METOPROLOL TARTRATE INJ 5 MG/5 ML VIAL IV PUSH (15:45)
[2023-01-26 15:52] LABS: Basophils Percent Auto 0.6 % (0.2-1.2); Eosinophils Absolute Auto 0.1 K/mm3 (0-0.3); Eosinophils Percent Auto 0.8 % (0-4.4); Hematocrit 45.4 % (37.0-47.0); Hemoglobin 14.3 g/dL (12.0-15.0); Immature Granulocyte Absolute 0.03 K/mm3 (0.00-0.031); Immature Granulocyte Percent A 0.4 % (0-0.5); Lymphocytes Absolute Auto 1.05 K/mm3 (0.9-3.2); Lymphocytes Percent Auto 14.7 % (18.3-44.2); Mean Corpuscular HGB Conc 31.5 g/dl (32-36); Mean Corpuscular Hemoglobin 29.9 pg (26-34); Mean Platelet Volume 9.9 fl (7.4-10.4); Monocytes Absolute Auto 0.8 K/mm3 (0.1-0.6); Monocytes Percent Auto 11.2 % (2.6-8.5); Neutrophils Absolute Auto 5.2 K/mm3 (1.3-6.7); Neutrophils Percent Auto 72.3 % (45.5-73.1); Platelet Count Result 152 k/mm3 (150-375); Red Blood Count 4.78 M/mm3 (4.2-5.4); Red Cell Distribution Width 18.1 % (11.5-14.5); White Blood Count 7.1 K/mm3 (4.5-10.0)
[2023-01-26 16:05] LABS: INR 1.3; Prothrombin Time 16.5 Seconds (11.1-14.7)
[2023-01-26 16:06] LABS: Partial Thromboplastin Time 28.8 SECONDS (22.3-36.8)
--- NOTE | 2023-01-26 16:06 | PC.NURSE ---
unable to get consistent bp and hr after metoprolol administration. provider notified and went to bedside. repeating monitor and manual bp. no further orders at this time.
--- NOTE | 2023-01-26 16:21 | ECG_ITS ---
Measurements Intervals [place] Rate: 115 P: [place]: 0 QRS: 183 QRSD: 101 T: 50 QT: 317 QTc: 439 Interpretive Statements ATRIAL FIBRILLATION WITH RAPID VENTRICULAR RESPONSE POSSIBLE RIGHT VENTRICULAR HYPERTROPHY [SOME/ALL OF: PROMINENT R IN V1, LATE TRANSITION, RAD, MARECLO, SSS] POOR R-WAVE PROGRESSION, PROBABLE OLD aNTEROSEPTAL MYOCARDIAL INFARCTION COMPARED TO ECG 01/26/2023 14:12:41 NO SIGNIFICANT CHANGES Electronically Signed On 01-26-2023 20:36:33 CDT by Mary Hamilton M.D.
[2023-01-26 17:02] LABS: Alanine Aminotransferase 23 U/L (6-35); Albumin Level 3.3 g/dL (3.5-5.1); Alkaline Phosphatase 119 U/L (38-126); Anion Gap 7 mmol/L (8-16); Aspartate Amino Transferase 39 U/L (14-36); Bilirubin,Total 1.7 mg/dL (0.2-1.3); Blood Urea Nitrogen 80 mg/dL (7-17); Calcium 9.5 mg/dL (8.4-10.2); Carbon Dioxide 27 mmol/L (22-30); Chloride 97 mmol/L (98-107); Estimated CRCL calculation 11 ml/min; Estimated Glomerular Filt Rate 9; Glucose 99 mg/dL (65-110); Magnesium 2.7 mg/dL (1.6-2.3); Potassium 5.6 mmol/L (3.4-5.0); Sodium 131 mmol/L (137-145)
[2023-01-26] MEDS: SODIUM CHLORIDE 0.9% IV 1,000 ML 999 ML IV CONT (17:15)
[2023-01-26 17:24] LABS: NT Pro B Type Natriuretic Pept 7840 pg/mL (19.9-100); Troponin I 0.511 ng/mL (0.000-0.034)
[2023-01-26] MEDS: AMIODARONE 360 MG/D5W 200 ML 360 MG/200 ML BAG 33.33 MG IV CONT (17:40)
[2023-01-26 19:43] LABS: Troponin I 0.461 ng/mL (0.000-0.034)
--- NOTE | 2023-01-26 20:12 | PM.IMHP ---
H&P: HPI History of Present Illness Date/Time: 01/26/23 20:12 Chief Complaint: SOB Narrative: This is an 82 yo female with PMHx significant for Obesity, A. fib, rate controlled, anticoagulated, hypothyroidism. Patient was sent over to the EDdue to worsening bilateral lower extremities edema, fatigue, sob. Patient was found to be tachycardic in ED with A.fib with RVR placed on Amiodarone drip. Patient denies fevers, rigors, chills, chest pain, no abdominal pain, no nausea, no vomiting. Preliminary work up was significant for BNP 7850, Bun 80, Cr 4.5.. Patient has been admitted for further evaluation management and treatment. XR chest 2V 01/26/2023 14:51 Indication: New onset of atrial fibrillation Procedure: AP and lateral views of the chest Comparison: Comparison to multiple prior studies sequentially, with oldest reviewed study dated? 09/28/2005. Findings: Cardiomegaly. No focal air space disease, pulmonary edema, pleural effusion or suspected pneumothorax. There is atherosclerosis of the aorta. Impression: 1: No acute cardiopulmonary disease Measurements Intervals? [place]? Rate: ? 115? P:? DC: ? 0? QRS:? 183 QRSD: ? 101? T:? 50 QT: ? 317? QTc:? 439? Interpretive Statements ATRIAL FIBRILLATION WITH RAPID VENTRICULAR RESPONSE POSSIBLE RIGHT VENTRICULAR HYPERTROPHY? [SOME/ALL OF: PROMINENT R IN V1, LATE TRANSITION, RAD, MARCELO, SSS] POOR R-WAVE PROGRESSION, PROBABLE OLD aNTEROSEPTAL MYOCARDIAL INFARCTION COMPARED TO ECG 01/26/2023 14:12:41 NO SIGNIFICANT CHANGES Electronically Signed On 01-26-2023 20:36:33 CDT by Mary Hamilton M.D. Review of Systems Review of Systems: SOB, LEG SWELLING, FATIGUE, PALPITATIONS Constitutional: Constitutional: Denies chills, Reports fatigue and Denies fever(s) Eyes: Eyes: Denies change in vision ENT: Denies dysphagia and Denies odynophagia Cardiovascular: Cardiovascular: Denies chest pain, Reports leg edema, Denies lightheadedness, Denies radiating jaw, neck or arm pain, Denies palpitations and Reports dyspnea Respiratory: Respiratory: Reports chest congestion, Denies cough and Denies excessive phlegm production Gastrointestinal: Gastrointestinal: Denies abdominal pain, Denies dyspepsia, Denies heartburn, Denies diarrhea, Denies nausea and Denies vomiting Genitourinary: Genitourinary: Denies dysuria Musculoskeletal: Musculoskeletal: Denies arthralgias and Denies joint swelling Integumentary/Breasts: Skin/Breast: Denies rash Neurologic: Denies vertigo, Denies dizziness, Denies focal weakness and Denies Sensory deficit (Neuro) Psychiatric: Psychiatric: Reports no additional psychiatric complaints and Reports as per HPI Endocrine: Endocrine: Denies cold intolerance, Denies fatigue, Denies flushing, Denies heat intolerance, Denies polyphagia, Denies polydipsia and Denies palpitations Hematologic/Lymphatic: Hematologic/Lymphatic: Reports no additional hematologic/lymphatic complaints and Reports as per HPI Allergic/Immunologic: Allergic/Immunologic: Reports no additional allergic/immunologic complaints and Reports as per HPI PMFSH Past Medical History Medical History Atrial fibrillation Colonic polyp Essential (primary) hypertension Gastro-esophageal reflux disease without esophagitis Glaucoma Hypothyroidism Type 2 diabetes mellitus without complications Surgical History Surgical History History of appendectomy History of right knee joint replacement Family History Family History Mother Family history of glaucoma Family history
[2023-01-26 22:16] LABS: Troponin I 0.468 ng/mL (0.000-0.034)
--- NOTE | 2023-01-26 22:39 | ADMGEN ---
This patient, Annette Barone, was admitted to IMU Room 212-01. Patient/family oriented to hospital policies and general routines including ID bracelet, bed and alarms, visiting hours, pain management, procedures, bathroom and other care routines, personal items, smoking policy, room service/diet, and visiting hours. Information on how to activate the Rapid Response Team has been discussed. Patient/Family are encouraged to report perceived risks to care and to ask questions if they do not understand what they are told or what they should do.
[2023-01-26] MEDS: AMIODARONE 360 MG/D5W 200 ML 360 MG/200 ML BAG 16.67 MG IV CONT (23:12)
[2023-01-27] VITALS (22 sets, daily range): BP systolic 84–119; BP diastolic 33–84; PULSE 99–143; RESP 18–22; TEMP 35.6–36.6; O2SAT 93–98
--- NOTE | 2023-01-27 | ECHO_ITS ---
Patient Info Name: Annette Barone Age: 82 years : 1940 Gender: Female Ht: 64 in Wt: 242 lbs BSA: 2.28 m2 HR: 120 bpm BP: 100 / 59 mmHg Heart Rhythm: Atrial Fibrillation Technical Quality: Fair Exam Date: 01/27/2023 10:36 AM Exam Location: [facility] Patient Status: Inpatient Admit Date: 01/26/2023 Staff Ordering Physician: Nnamdi Matute MD Case Operator: Tamy Aguilera RDCS Attending Provider: Erika Ibarra MD Referring Physician: Giovani JOLLEY; Exam Type: CA echo dop color flow w con Study Info Indications - swelling R06.02 - Shortness of breath Complete two-dimensional, color flow and Doppler transthoracic echocardiogram is performed with contrast to opacify the left ventricle and to improve the deliniation of the left ventricle endocardial borders. Contrast/Agitated Saline Contrast/Ag. Saline: Definity Amount: 2.00 ml Administered By: Tamy Aguilera RDCS Existing IV Access: Yes IV Access Condition: patent with no signs of infiltration Summary 1. Normal left ventricular size and thickness with good contractility of all segments. Ejection fraction is 55-60%. Grade 2 diastolic dysfunction is present. 2. Right ventricular chamber dimension is moderately enlarged. Mild hypokinesis. 3. Left atrial chamber dimension is severely enlarged. 4. Right atrial chamber dimension is severely enlarged. 5. There is moderate mitral valve calcification. 6. There is mild mitral valve stenosis. MVA by PHT is 1.9 cm2. There is severe annular calcification. 7. There is mild to moderate tricuspid valve regurgitation. 8. No pulmonary hypertension, estimated pulmonary arterial systolic pressure is 34 mmHg. 9. Dilated inferior vena cava with no collapse upon inspiration consistent with significantly elevated right atrial pressure, 20 mmHg. 10. Atrial fibrillation. Left Ventricle Left ventricular chamber dimension is normal. Left ventricular systolic function is normal, estimated at 55-60%. There is no increased left ventricular wall thickness. Left ventricular septal wall motion is normal. The left ventricular diastolic function is grade II diastolic dysfunction. Right Ventricle Right ventricular chamber dimension is moderately enlarged. Mild hypokinesis. Right ventricular systolic function is reduced. Left Atria Left atrial chamber dimension is severely enlarged. Right Atria Right atrial chamber dimension is severely enlarged. Aortic Valve The aortic valve is trileaflet. There is mild aortic valve sclerosis. There is no aortic valve stenosis. There is no aortic valve regurgitation. Pulmonic Valve The pulmonic valve is normal. There is no pulmonic valve stenosis. There is trace pulmonic regurgitation. Mitral Valve The mitral valve has normal leaflets. There is mild mitral valve stenosis. MVA by PHT is 1.9 cm2. There is severe annular calcification. There is no mitral valve regurgitation. There is moderate mitral valve calcification. The mitral valve annulus is severely calcified. Tricuspid Valve The tricuspid valve leaflets are normal. There is no significant tricuspid valve stenosis. There is mild to moderate tricuspid valve regurgitation. No pulmonary hypertension, estimated pulmonary arterial systolic pressure is 34 mmHg. Pericardium/Pleural The pericardium appears normal. There is no pericardial effusion. Inferior Vena Cava Dilated inferior vena cava with no collapse upon inspiration consistent with significantly elevated right atrial pressure, 20
[2023-01-27 05:35] LABS: Hematocrit 43.2 % (37.0-47.0); Hemoglobin 13.7 g/dL (12.0-15.0); Mean Corpuscular HGB Conc 31.7 g/dl (32-36); Mean Corpuscular Hemoglobin 29.9 pg (26-34); Mean Corpuscular Volume 94.3 fl (80-100); Mean Platelet Volume 10.1 fl (7.4-10.4); Platelet Count Result 133 k/mm3 (150-375); Red Blood Count 4.58 M/mm3 (4.2-5.4); Red Cell Distribution Width 18.3 % (11.5-14.5); White Blood Count 6.8 K/mm3 (4.5-10.0)
[2023-01-27] MEDS: LEVOTHYROXINE SODIUM 112 MCG TABLET PO (05:42)
[2023-01-27 05:45] LABS: Anion Gap 9 mmol/L (8-16); Blood Urea Nitrogen 78 mg/dL (7-17); Calcium 8.9 mg/dL (8.4-10.2); Carbon Dioxide 24 mmol/L (22-30); Chloride 98 mmol/L (98-107); Estimated CRCL calculation 11 ml/min; Estimated Glomerular Filt Rate 9; Glucose 106 mg/dL (65-110); Potassium 5.4 mmol/L (3.4-5.0); Sodium 131 mmol/L (137-145)
--- NOTE | 2023-01-27 08:53 | PM.CNCAR ---
Assessment and Plan Assessment and plan (1) Hypotension: Code(s): I95.9 - Hypotension, unspecified Status: Acute Assessment and Plan: BP's 80's-90's, some lower, since admission. Unclear why patient is so hypotensive; her renal labs suggest use prerenal even though she is grossly volume overloaded. --Does not appear septic but we should check lactic acid level in blood cultures. --hold furosemide until --500 cc saline --If it does not improve, may need midodrine or transfer to ICU for pressors. (2) A-fib: Qualifiers: Atrial fibrillation type: unspecified Qualified Code(s): I48.91 - Unspecified atrial fibrillation Code(s): I48.91 - Unspecified atrial fibrillation Status: Acute Assessment and Plan: History of paroxysmal atrial fibrillation, asymptomatic but found to have AFib RVR despite her usual metoprolol. Currently on amiodarone drip with heart rate running about 110. --continue amiodarone drip for now --hold metoprolol if systolic blood pressure less than 100 mmHg --continue Xarelto but reduce dose to 15 mg daily to to her renal function --cancel echo since she had one done in our office 01/26/2023 (3) RONY (acute kidney injury): Code(s): N17.9 - Acute kidney failure, unspecified Status: Acute Assessment and Plan: Patient has developed acute kidney injury over the summer, unclear etiology. No change in her diuretics dose. Does have frequent loose bowel movements a may be try on that basis well. Hypotensive today, but not yesterday, so doubt that is the cause. --Dr. Cueva consulted --daily BMP (4) Chronic anticoagulation: Code(s): Z79.01 - retirement (current) use of anticoagulants Status: Acute Assessment and Plan: Takes Xarelto, will reduce dose to 15 mg daily due to acute kidney injury (5) IGOR (obstructive sleep apnea): Code(s): G47.33 - Obstructive sleep apnea (adult) (pediatric) Status: Acute Assessment and Plan: Has severe IGOR diagnosed in 2021, did not receive CPAP equipment. Also has moderate obstruction by PFTs in 2020. May benefit from treatment since she does have right ventricular enlargement and hypokinesis. (6) Elevated brain natriuretic peptide (BNP) level: Code(s): R79.89 - Other specified abnormal findings of blood chemistry Status: Acute Assessment and Plan: elevated pro-BNP noted, but CXR w/o CHF. Grossly volume overloaded but I am hesitant to diurese due to RONY. No pulmonary edema to push me toward diuretic tx. --Awaiting Dr. Cueva's opinion re: diuretic needs. 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 Even may need to change her Xarelto to warfarin because of this type of mitral valve disease. History of Present Illness History of Present Illness Consult date/time: 01/27/23 08:53 Reason For Visit: A-Fib with RVR Narrative: Annette ramírez is a 82-year-old female whom I was asked to see at the request of Herber Rosales APRN, for my advice and opinion regarding her AFib RVR, in consultation. I follow her in the office for her history of paroxysmal atrial fibrillation, mitral stenosis, hypertension, and she has a history of COPD and IGOR. The patient came to our office to get an echocardiogram and was in AFib RVR, heart rate in the 140s. She was sent to the emergency room her blood pressure was 200/100 mmHg. She is given a dose of IV Lopressor 5 mg but then became hypotensive. She was given IV fluids and amiodarone was started at 1 milligram/minute. She was admitted for AFib RVR, CHF exacerbation and acute kidney injury with a creatinine of 4.5. The patient states that overall she feels pretty good, no different from usual. She has chronic WALLER just walking from room to room which she states is no worse than usual. She has chronic lower ex
[2023-01-27] MEDS: LATANOPROST 0.005% OP SOLN 2.5 ML BTL 1 DROP EACH EYE (09:52)
[2023-01-27] MEDS: METOPROLOL TARTRATE 25 MG TABLET PO ×2 (09:52→21:32)
[2023-01-27] MEDS: PANTOPRAZOLE 40 MG TABLET PO (09:53)
[2023-01-27] MEDS: TIMOLOL MALEATE 0.5% OP SOLN 5 ML BOTTLE 1 DROP EACH EYE ×2 (09:53→23:54)
[2023-01-27] MEDS: AMIODARONE 360 MG/D5W 200 ML 360 MG/200 ML BAG 16.67 MG IV CONT ×2 (10:19→21:30)
[2023-01-27] MEDS: PERFLUTREN LIPID MICROSPHERES 1.5 ML VIAL DILUTED TO 10 ML TOTAL VOLUME IV PUSH (11:08)
--- NOTE | 2023-01-27 11:20 | P.CONNP_ITS ---
Assessment and Plan Assessment and plan (1) RONY (acute kidney injury): Code(s): N17.9 - Acute kidney failure, unspecified Status: Acute Assessment and Plan: * exact etiology not clear * creatinine normal in August 2022 * issues with hypotension now but was hypertensive on admission * no other previous symptoms either * no evidence of volume depletion noted (in fact, significant LE swelling/edema noted) * despite elevated BNP, no evidence of pulmonary edema either * follow-up on renal ultrasound * check urine studies and CPK * will proceed with serological evaluation as well * hold further diuretic therapy along with REG-I given ongoing hypotension in conjunction with renal dysfunction * follow repeat labs and UOP (2) Hyperkalemia: Code(s): E87.5 - Hyperkalemia Status: Acute Assessment and Plan: * presumably due to RONY, REG-I use, and supplemental potassium * medical management for now * follow repeat levels (3) Hypotension: Code(s): I95.9 - Hypotension, unspecified Status: Acute Assessment and Plan: * hypertensive on evaluation in ER * following IV metoprolol given in ER, she has been persistently hypotensive since... * trial of IVF boluses as tolerated * holding diuretics * if continues to persist, may need vasopressor therapy +/- midodrine (4) A-fib: Qualifiers: Atrial fibrillation type: unspecified Qualified Code(s): I48.91 - Unspecified atrial fibrillation Code(s): I48.91 - Unspecified atrial fibrillation Status: Acute Assessment and Plan: * known history * given suboptimal hemodynamics, currently on amiodarone gtt * already on anticoagulation * recent Echo results noted * Cardiology following (5) IGOR (obstructive sleep apnea): Code(s): G47.33 - Obstructive sleep apnea (adult) (pediatric) Status: Acute Assessment and Plan: * CPAP at nighttime I will continue follow patient with you while she remains hospitalized make further recommendations as needed. Thank you for allowing me to participate in care this patient. History of Present Illness Reason for Consult Consult date: 01/27/23 Reason for consult: acute renal failure Chief Complaint Chief complaint: A-Fib with RVR History of Present Illness Narrative: The patient is an 82-year-old female with a past medical history is outlined below who presented to [facility] Emergency room for further assessment of atrial fibrillation with RVR. On the day of admission, the patient came to the hospital for an outpatient echocardiogram and it was discovered that she was in atrial fibrillation with RVR with a heart rate in the 140s to 150s. She was instructed to go to the ER for further assessment given this finding. Prior to her presentation to the ER, she did report some mild shortness of breath as well as significant lower extremity edema/swelling. Workup and evaluation in the emergency room confirmed her atrial fibrillation with RVR and she was otherwise quite hypertensive with systolic BP is in the 200s. She was given a dose of IV Lopressor which did not actually improve her atrial fibrillation but unfortunately dropped her blood pressure quite significantly. She subsequently was given IV fluids with some mild improvement in her hypotension and then started on amiodarone drip for treatment of her atrial fibrillation with RVR. Routine blood tests were significant for a marked decline in her renal function with an elevated BUN and creatinine far above her baseline at 80 and 4.5 mg/dL, re
--- NOTE | 2023-01-27 11:20 | PM.CNNEP ---
Assessment and Plan Assessment and plan (1) RONY (acute kidney injury): Code(s): N17.9 - Acute kidney failure, unspecified Status: Acute Assessment and Plan: exact etiology not clear creatinine normal in August 2022 issues with hypotension now but was hypertensive on admission no other previous symptoms either no evidence of volume depletion noted (in fact, significant LE swelling/edema noted) despite elevated BNP, no evidence of pulmonary edema either follow-up on renal ultrasound check urine studies and CPK will proceed with serological evaluation as well hold further diuretic therapy along with REG-I given ongoing hypotension in conjunction with renal dysfunction follow repeat labs and UOP (2) Hyperkalemia: Code(s): E87.5 - Hyperkalemia Status: Acute Assessment and Plan: presumably due to RONY, REG-I use, and supplemental potassium medical management for now follow repeat levels (3) Hypotension: Code(s): I95.9 - Hypotension, unspecified Status: Acute Assessment and Plan: hypertensive on evaluation in ER following IV metoprolol given in ER, she has been persistently hypotensive since... trial of IVF boluses as tolerated holding diuretics if continues to persist, may need vasopressor therapy +/- midodrine (4) A-fib: Qualifiers: Atrial fibrillation type: unspecified Qualified Code(s): I48.91 - Unspecified atrial fibrillation Code(s): I48.91 - Unspecified atrial fibrillation Status: Acute Assessment and Plan: known history given suboptimal hemodynamics, currently on amiodarone gtt already on anticoagulation recent Echo results noted Cardiology following (5) IGOR (obstructive sleep apnea): Code(s): G47.33 - Obstructive sleep apnea (adult) (pediatric) Status: Acute Assessment and Plan: CPAP at nighttime I will continue follow patient with you while she remains hospitalized make further recommendations as needed. Thank you for allowing me to participate in care this patient. History of Present Illness Reason for Consult Consult date: 01/27/23 Reason for consult: acute renal failure Chief Complaint Chief complaint: A-Fib with RVR History of Present Illness Narrative: The patient is an 82-year-old female with a past medical history is outlined below who presented to [facility] Emergency room for further assessment of atrial fibrillation with RVR. On the day of admission, the patient came to the hospital for an outpatient echocardiogram and it was discovered that she was in atrial fibrillation with RVR with a heart rate in the 140s to 150s. She was instructed to go to the ER for further assessment given this finding. Prior to her presentation to the ER, she did report some mild shortness of breath as well as significant lower extremity edema/swelling. Workup and evaluation in the emergency room confirmed her atrial fibrillation with RVR and she was otherwise quite hypertensive with systolic BP is in the 200s. She was given a dose of IV Lopressor which did not actually improve her atrial fibrillation but unfortunately dropped her blood pressure quite significantly. She subsequently was given IV fluids with some mild improvement in her hypotension and then started on amiodarone drip for treatment of her atrial fibrillation with RVR. Routine blood tests were significant for a marked decline in her renal function with an elevated BUN and creatinine far above her baseline at 80 and 4.5 mg/dL, respectively. Furthermore, her potassium was mildly elevated and her proBNP was high at 7800. her initial troponins were mildly elevated but flat and her EKG confirmed her atrial fibrillation with RVR. On further questioning, she reports her baseline shortness of breath with exertional activities but denies any orthopnea or PND. She has known chronic lower extremity swelling / edema and she states
[2023-01-27] MEDS: SODIUM CHLORIDE 0.9% IV 1,000 ML 100 ML IV CONT (11:24)
[2023-01-27] MEDS: ONDANSETRON INJ 4 MG/2 ML VIAL IV PUSH (11:25)
--- NOTE | 2023-01-27 13:02 | IVDEFINITY ---
Prior to administration of IV Definity the patient was educated on the risks and benefits of the imaging enhancing agent including potential adverse side effects. The patient verbalized understanding. Allergies were verified. No exclusion criteria were identified and at least one of the following inclusion criteria were met: 1) physician request, 2) patient technically difficult to image (per the [place] [employer] guidelines of two or more segments not discernable within the apical view), or 3) questionable left ventricular function. ?
--- NOTE | 2023-01-27 16:11 | PM.IMPN ---
Progress Note: A&P Assessment and Plan (1) A-fib: Qualifiers: Atrial fibrillation type: unspecified Qualified Code(s): I48.91 - Unspecified atrial fibrillation Code(s): I48.91 - Unspecified atrial fibrillation Status: Acute Assessment and Plan: Currently on amiodarone drip Cardiology following Echocardiogram in a.m. (2) CHF (congestive heart failure): Qualifiers: Heart failure chronicity: chronic Code(s): I50.9 - Heart failure, unspecified Status: Acute Assessment and Plan: Diuresis on hold for hypotension Strict intake and output Daily weight Fluid restriction (3) RONY (acute kidney injury): Code(s): N17.9 - Acute kidney failure, unspecified Status: Acute Assessment and Plan: Likely cardiorenal since vs dehydration A component of pre renal azotemia as well Renal ultrasound in a.m. Holding lisinopril Nephrology following (4) IGOR (obstructive sleep apnea): Code(s): G47.33 - Obstructive sleep apnea (adult) (pediatric) Status: Acute Assessment and Plan: CPAP at nighttime (5) Gastro-esophageal reflux disease without esophagitis: Code(s): K21.9 - Gastro-esophageal reflux disease without esophagitis Status: Acute Assessment and Plan: PPI Plan DVT prophylaxis on Xarelto Subjective Date/time seen: 01/27/23 16:11 Review of Systems Review of Systems: SOB, LEG SWELLING, FATIGUE, PALPITATIONS Constitutional: Constitutional: Denies chills, Denies fatigue and Denies fever(s) Eyes: Eyes: Denies change in vision ENT: Denies dysphagia, Denies vertigo, Denies dizziness and Denies odynophagia Cardiovascular: Cardiovascular: Denies chest pain, Reports leg edema, Denies lightheadedness, Denies radiating jaw, neck or arm pain, Denies palpitations and Reports dyspnea Respiratory: Respiratory: Reports chest congestion, Denies cough, Denies excessive phlegm production and Reports dyspnea Gastrointestinal: Gastrointestinal: Denies abdominal pain, Denies dysphagia, Denies dyspepsia, Denies heartburn, Denies diarrhea, Denies nausea, Denies odynophagia and Denies vomiting Genitourinary: Genitourinary: Denies dysuria Musculoskeletal: Musculoskeletal: Denies arthralgias and Denies joint swelling Integumentary/Breasts: Skin/Breast: Denies rash Neurologic: Denies vertigo, Denies dizziness, Denies focal weakness and Denies Sensory deficit (Neuro) Psychiatric: Psychiatric: Reports no additional psychiatric complaints and Reports as per HPI Endocrine: Endocrine: Denies cold intolerance, Denies fatigue, Denies flushing, Denies heat intolerance, Denies polyphagia, Denies polydipsia and Denies palpitations Hematologic/Lymphatic: Hematologic/Lymphatic: Reports no additional hematologic/lymphatic complaints and Reports as per HPI Allergic/Immunologic: Allergic/Immunologic: Reports no additional allergic/immunologic complaints and Reports as per HPI Exam Narrative: lying in stretcher Const: General: comfortable, no acute distress, well developed, alert, awake, average body habitus and obese Nutritional Appearance: average body habitus and obese Orientation/consciousness: patient oriented x3 HENMT: Head: normal to inspection, normocephalic and atraumatic Ears: hearing grossly normal bilaterally Face/Nose/Sinus: normal facial exam Face and sinus: normal facial exam Eyes: General: appearance normal, both eyes and all related structures Pupils: Equal, round and reactive pupils present EOM: EOMs intact bilaterally Neck: Neck: full ROM, no lymphadenopathy and no JVD Thyroid: thyroid normal Lymphatic: no lymphadenopathy noted Resp: Effort & Inspection: normal respiratory effort, able to speak in complete sentences and tachypneic Auscultation: clear to auscultation bilaterally and crackles Cardio: Jugular venous distension: no JVD Rate: regular rate Rhythm: regular rhythm Heart sounds: S1 norm
[2023-01-27] MEDS: MIDODRINE HCL 2.5 MG TABLET 5 MG PO (16:23)
--- NOTE | 2023-01-27 16:45 | PC.NURSE ---
On 01/27/23, the student, April ROSALES [facility], provided care and completed [facility] documentation on this patient. I have reviewed the student's documentation and agree with the findings.
[2023-01-27] MEDS: SODIUM ZIRCONIUM CYCLOSILICATE 10 GM POWD.PACK PO (17:47)
[2023-01-27 20:50] LABS: Lactic Acid Reflex 1.8 mmol/L (0.7-2.0)
[2023-01-27 20:52] LABS: Anion Gap 10 mmol/L (8-16); Blood Urea Nitrogen 84 mg/dL (7-17); Calcium 9.2 mg/dL (8.4-10.2); Carbon Dioxide 22 mmol/L (22-30); Chloride 97 mmol/L (98-107); Estimated CRCL calculation 10 ml/min; Estimated Glomerular Filt Rate 8; Glucose 108 mg/dL (65-110); Potassium 5.4 mmol/L (3.4-5.0); Sodium 129 mmol/L (137-145)
[2023-01-28] VITALS (55 sets, daily range): BP systolic 62–237; BP diastolic 24–203; PULSE 90–153; RESP 14–21; TEMP 36.1–36.5; O2SAT 88–100
[2023-01-28 05:37] LABS: Basophils Percent Auto 0.1 % (0.2-1.2); Eosinophils Absolute Auto 0.1 K/mm3 (0-0.3); Eosinophils Percent Auto 0.9 % (0-4.4); Hematocrit 44.7 % (37.0-47.0); Hemoglobin 13.9 g/dL (12.0-15.0); Immature Granulocyte Absolute 0.04 K/mm3 (0.00-0.031); Immature Granulocyte Percent A 0.5 % (0-0.5); Lymphocytes Absolute Auto 1.33 K/mm3 (0.9-3.2); Lymphocytes Percent Auto 16.2 % (18.3-44.2); Mean Corpuscular HGB Conc 31.1 g/dl (32-36); Mean Corpuscular Hemoglobin 29.8 pg (26-34); Mean Corpuscular Volume 95.9 fl (80-100); Monocytes Absolute Auto 0.9 K/mm3 (0.1-0.6); Neutrophils Absolute Auto 5.9 K/mm3 (1.3-6.7); Neutrophils Percent Auto 71.3 % (45.5-73.1); Platelet Count Result 146 k/mm3 (150-375); Red Blood Count 4.66 M/mm3 (4.2-5.4); Red Cell Distribution Width 18.6 % (11.5-14.5); White Blood Count 8.2 K/mm3 (4.5-10.0)
[2023-01-28 05:41] LABS: Alanine Aminotransferase 21 U/L (6-35); Albumin Level 2.9 g/dL (3.5-5.1); Alkaline Phosphatase 92 U/L (38-126); Anion Gap 11 mmol/L (8-16); Aspartate Amino Transferase 44 U/L (14-36); Blood Urea Nitrogen 87 mg/dL (7-17); Calcium 9.2 mg/dL (8.4-10.2); Carbon Dioxide 22 mmol/L (22-30); Chloride 98 mmol/L (98-107); Creatine Kinase 151 U/L (30-135); Estimated CRCL calculation 9 ml/min; Estimated Glomerular Filt Rate 7; Glucose 82 mg/dL (65-110); Magnesium 2.6 mg/dL (1.6-2.3); Phosphorus 6.6 mg/dL (2.5-4.5); Potassium 5.4 mmol/L (3.4-5.0); Sodium 131 mmol/L (137-145)
[2023-01-28 05:48] LABS: Complement C3 66 mg/dL (88-165)
--- NOTE | 2023-01-28 06:00 | PC.NURSE ---
very little urine in reyes throughout noc. urine very thick, purulent appearance. Not enough to collect specimens. Catheter repositioned and flushed close to midnight.
[2023-01-28 06:30] LABS: Thyroid Stimulating Hormone Reflex 0.702 uIU/mL (0.465-4.68)
[2023-01-28] MEDS: LEVOTHYROXINE SODIUM 112 MCG TABLET PO (06:39)
--- NOTE | 2023-01-28 07:55 | ECG_ITS ---
Measurements Intervals [place] Rate: 83 P: ID: 0 QRS: 186 QRSD: 100 T: 102 QT: 346 QTc: 408 Interpretive Statements ATRIAL FIBRILLATION LOW QRS VOLTAGE ANTEROSEPTAL MYOCARDIAL INFARCTION [40+ ms Q WAVE IN V1-V4], PROBABLY OLD ABNORMAL ECG COMPARED TO ECG 01/26/2023 16:27:16 NO SIGNIFICANT CHANGES Electronically Signed On 01-28-2023 15:03:56 CDT by Dio Mohan M.D.
[2023-01-28] MEDS: SODIUM CHLORIDE 0.9% IV 500 ML 999 ML IV CONT (07:58)
--- NOTE | 2023-01-28 08:52 | WPDCNINT ---
Assessment and Plan Assessment and plan (1) Hypotension: Code(s): I95.9 - Hypotension, unspecified Status: Acute Assessment and Plan: Patient's hypotension is likely multifactorial with a combination of atrial fibrillation, congestive heart failure, cardiogenic and possible component of sepsis as patient does have little bit of cellulitis on her right leg. She is significantly volume overloaded hence will be given cautious amount of IV fluids. She will be started on Tom-Synephrine infusion. Her AFib with RVR limits choice of vasopressors UA is pending (2) A-fib: Qualifiers: Atrial fibrillation type: unspecified Qualified Code(s): I48.91 - Unspecified atrial fibrillation Code(s): I48.91 - Unspecified atrial fibrillation Status: Acute Assessment and Plan: Patient has history of AFib and is now in RVR Continue amiodarone infusion On Xarelto Hold beta-harry (3) RONY (acute kidney injury): Code(s): N17.9 - Acute kidney failure, unspecified Status: Acute Assessment and Plan: Patient presented with elevated creatinine of 4.5 which has increased to 5.7. Patient has minimal urine output Nephrology is following and workup has been ordered Renal ultrasound was unremarkable Patient will be started vasopressors to get blood pressure up She is at risk of needing are [employer] due to worsening renal function, oliguria and volume overload. I have discussed with manager stone and will proceed with placement of temporary dialysis catheter to provide central access and access for dialysis (4) CHF (congestive heart failure): Qualifiers: Heart failure chronicity: chronic Code(s): I50.9 - Heart failure, unspecified Status: Acute Assessment and Plan: Patient has history of AFib and denies any history of coronary disease. She does have history of mild mitral stenosis. But significant lower extremity edema without any pulmonary edema suggest right heart failure. Echo done on this hospitalization shows summary ? 1. Normal left ventricular size and thickness with good contractility of all segments.? Ejection fraction is 55-60%.? Grade 2 diastolic dysfunction is present. ? 2. Right ventricular chamber dimension is moderately enlarged.? Mild hypokinesis. ? 3. Left atrial chamber dimension is severely enlarged. ? 4. Right atrial chamber dimension is severely enlarged. ? 5. There is moderate mitral valve calcification. ? 6. There is? mild mitral valve stenosis.? MVA by PHT is 1.9 cm2.? There is severe annular calcification. ? 7. There is mild to moderate tricuspid valve regurgitation. ? 8. No pulmonary hypertension, estimated pulmonary arterial systolic pressure is 34 mmHg. ? 9. Dilated inferior vena cava with no collapse upon inspiration consistent with significantly elevated right atrial pressure, 20 mmHg. ? 10. Atrial fibrillation. Patient reports history of chest pain on exertion at home and may have had inferior SC Cardiology following Ionotropic therapy limited by AFib with RVR (5) Cellulitis: Code(s): L03.90 - Cellulitis, unspecified Status: Acute Assessment and Plan: She does a appear to have some cellulitis of right lower extremity. Although the or blisters but the mostly fluid-filled secondary to edema and are not suggestive of deeper soft tissue infection. She has normal WBC and is afebrile Checks lactic acid procalcitonin level and start patient on vancomycin, and Rocephin. Will add clindamycin if there is any evidence of deeper infection Blood cultures have been sent pending Plan DVT prophylaxis -Xarelto Stress ulcer prophylaxis -patient already on PPI Nutrition -renal and heart healthy diet Code Status -patient wishes to be Full Code Total Critical Care Time - 40 minutes Due to a high probability of clinically significant, life threatening deterioration, the patient required my highest level of preparedness to intervene emergen
--- NOTE | 2023-01-28 08:55 | PC.NURSE ---
Patient transferred to ICU 7 for higher level of care. Neosynephrine gtt to be initiated for BP and dialysis catheter to be placed.
--- NOTE | 2023-01-28 09:15 | PC.NURSE ---
Gila, daughter, updated on patient condition and plan of care
[2023-01-28 09:16] LABS: Lactic Acid Reflex 1.7 mmol/L (0.7-2.0)
--- NOTE | 2023-01-28 09:22 | PM.PNNEP ---
Progress Note: A&P Assessment and Plan (1) RONY (acute kidney injury): Code(s): N17.9 - Acute kidney failure, unspecified Status: Acute Assessment and Plan: etiology not clear.... creatinine normal in August 2022 issues with hypotension now but was hypertensive on admission no other previous symptoms no evidence of volume depletion noted (in fact, significant LE swelling/edema noted) despite elevated BNP, no evidence of pulmonary edema on admission evaluation to date: renal ultrasound without obstruction UA suggestive of infection nephrotic range proteinuria urine eosinophils negative urine electrolytes prerenal (by FeUrea) CPK not significantly elevated serological testing in progress more concerning that she is making very little urine output remains at risk for CHIEF WARDEN/dialysis assess response to vasopressor therapy follow repeat labs and UOP (2) Hyperkalemia: Code(s): E87.5 - Hyperkalemia Status: Acute Assessment and Plan: presumably due to RONY, REG-I use, and supplemental potassium medical management for now follow repeat levels (3) Hypotension: Code(s): I95.9 - Hypotension, unspecified Status: Acute Assessment and Plan: following IV metoprolol given in ER, she has been persistently hypotensive since... trial of IVF boluses with limited response other contributing factors -- atrial fibrillation and CHF holding diuretics and BP medications to be initiated on vasopressor therapy early sepsis versus cardiogenic versus other?? follow culture data empiric antibiotic therapy (4) Cellulitis: Code(s): L03.90 - Cellulitis, unspecified Status: Acute Assessment and Plan: suggested by exam on antibiotic therapy follow culture data (5) A-fib: Qualifiers: Atrial fibrillation type: unspecified Qualified Code(s): I48.91 - Unspecified atrial fibrillation Code(s): I48.91 - Unspecified atrial fibrillation Status: Acute Assessment and Plan: known history given suboptimal hemodynamics, currently on amiodarone gtt already on anticoagulation recent Echo results noted Cardiology following (6) IGOR (obstructive sleep apnea): Code(s): G47.33 - Obstructive sleep apnea (adult) (pediatric) Status: Acute Assessment and Plan: CPAP at nighttime Discussed case with Dr. Mclean. Long extensive discussion (> 20 min) with the patient regarding her severe/significant renal dysfunction in association with almost anuria and the concern that she may require renal replacement therapy/dialysis if her kidney function continues to worsen or if she develops issues/problems with persistent hyperkalemia, metabolic acidosis, volume overload, and/or uremia. Given her diminished urine output, I worry about her fluid/volume status at this time. Furthermore, given her persistent hypotension and the need for vasopressor therapy, I am unclear how well she would tolerate regular/standard hemodialysis in general. She appeared to voice understanding. Will continue to follow. Subjective Date/time seen: 01/28/23 09:22 Interval history: Follow-up for acute kidney injury/acute renal failure. Transferred to ICU for closer monitoring as well as initiation of vasopressor therapy due to persistent hypotension not responsive to conservative therapy in conjunction with worsening renal failure; very little urine output noted in the last 24 hours; renal function continues to deteriorate as noted by trend of labs; no acute distress noted; central access to be placed for both vasopressor needs as well as CHIEF WARDEN/dialysis if needed. Exam Narrative: General: elderly but WD/WN female in NAD Heart: IRRR, tachycardic, normal S1 and S2; no rub Lungs: clear to auscultation Abdomen: soft, nontender, nondistended, positive bowel sounds Extremities: no cyanosis or clubbing; 2 - 3+ edema Skin: RLE er
--- NOTE | 2023-01-28 09:22 | P.PNNP_ITS ---
Progress Note: A&P Assessment and Plan (1) RONY (acute kidney injury): Code(s): N17.9 - Acute kidney failure, unspecified Status: Acute Assessment and Plan: * etiology not clear.... * creatinine normal in August 2022 * issues with hypotension now but was hypertensive on admission * no other previous symptoms * no evidence of volume depletion noted (in fact, significant LE swelling/edema noted) * despite elevated BNP, no evidence of pulmonary edema on admission * evaluation to date: * renal ultrasound without obstruction * UA suggestive of infection * nephrotic range proteinuria * urine eosinophils negative * urine electrolytes prerenal (by FeUrea) * CPK not significantly elevated * serological testing in progress * more concerning that she is making very little urine output * 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 * trial of IVF boluses with limited response * other contributing factors -- atrial fibrillation and CHF * holding diuretics and BP medications * to be initiated on vasopressor therapy * early sepsis versus cardiogenic versus other?? * follow culture data * empiric antibiotic therapy (4) Cellulitis: Code(s): L03.90 - Cellulitis, unspecified Status: Acute Assessment and Plan: * suggested by exam * on antibiotic therapy * follow culture data (5) A-fib: Qualifiers: Atrial fibrillation type: unspecified Qualified Code(s): I48.91 - Unspecified atrial fibrillation Code(s): I48.91 - Unspecified atrial fibrillation Status: Acute Assessment and Plan: * known history * given suboptimal hemodynamics, currently on amiodarone gtt * already on anticoagulation * recent Echo results noted * Cardiology following (6) IGOR (obstructive sleep apnea): Code(s): G47.33 - Obstructive sleep apnea (adult) (pediatric) Status: Acute Assessment and Plan: * CPAP at nighttime Discussed case with Dr. Mclean. Long extensive discussion (> 20 min) with the patient regarding her severe/significant renal dysfunction in association with almost anuria and the concern that she may require renal replacement therapy/dialysis if her kidney function continues to worsen or if she develops issues/problems with persistent hyperkalemia, metabolic acidosis, volume overload, and/or uremia. Given her diminished urine output, I worry about her fluid/volume status at this time. Furthermore, given her persistent hypotension and the need for vasopressor therapy, I am unclear how well she would tolerate regular/standard hemodialysis in general. She appeared to voice understanding. Will continue to follow. Subjective Date/time seen: 01/28/23 09:22 Interval history: Follow-up for acute kidney injury/acute renal failure. Transferred to ICU for closer monitoring as well as initiation of vasopressor therapy due to persistent hypotension not responsive to conservative therapy in conjunction with worsening renal failure; very little urine output noted in the last 24 hours
[2023-01-28 09:57] LABS: Hepatitis B Surface Antigen Negative (Negative)
--- NOTE | 2023-01-28 10:33 | WPDPROCEDUR ---
Procedures Central Line Placement Right IJ: Central Line Date: 01/28/23 Central Line Time: 09:45 Discussed w/ the patient/family/POA,the placement of a central venous catheter, including its clinical necessity/indication & associated potential risks, benifits and alternatives.: Yes The patient/family/POA understand(s) and acknowledge(s) the need to proceed with central venous catheter insertion as an important element of the patient's clinical management.: Yes Consent: I have discussed with the patient , the non-emergent placement of a temporary dialysis catheter with central venous port, including its clinical necessity/indication and associated potential risks and complications. The patient and/or surrogate understand(s) and acknowledge(s) the need to proceed with temporary dialysis catheter with a central venous port insertion as an important element of the patient's clinical management. Time Out Performed: Yes Patient Position: supine Patient placed on monitor/pulse ox: Yes Provider Prep: mask, sterile gown, sterile gloves, Max. sterile barrier precautions and hand hygiene with conventional soap/water or alcohol based hand rub Central line prep: Povidone-Iodine 1% Local anesthesia used: lidocaine 1% Amount of anesthesia used (ml): 5 Sterile US Technique with sterile gel/sterile probe covers: Yes Central line lumen inserted: triple Length (cm): 20 Depth of Insertion (cm): 20 Post Procedure: sutured in place, good blood return, all ports aspirated, flushed, capped, transparent dressing and aseptic technique maintained throughout procedure Post procedure x-ray: tip of catheter in good position Patient tolerated procedure: well Complications: hematoma at puncture site Additional comments: Patient required multiple attempts as multiple times I was able to cannulate the vein but was unable to advance the guidewire. Patient was on anticoagulation this led to more than usual bleeding and hematoma at the site which could only be seen by ultrasound. No hematoma visible on exam. After multiple attempts I was able to advance guidewire without any difficulty and place the catheter. Patient did bleed more than usual due to her anticoagulation. Femoral site not available due to morbid obesity and fungal infection of inguinal folds.
[2023-01-28] MEDS: AMIODARONE 360 MG/D5W 200 ML 360 MG/200 ML BAG 33.33 MG IV CONT (10:57)
[2023-01-28] MEDS: PANTOPRAZOLE 40 MG TABLET PO (11:15)
[2023-01-28] MEDS: MIDODRINE HCL 2.5 MG TABLET 5 MG PO ×3 (11:15→16:59)
[2023-01-28] MEDS: TIMOLOL MALEATE 0.5% OP SOLN 5 ML BOTTLE 1 DROP EACH EYE ×2 (11:16→20:12)
[2023-01-28] MEDS: LATANOPROST 0.005% OP SOLN 2.5 ML BTL 1 DROP EACH EYE (11:17)
[2023-01-28] MEDS: SODIUM ZIRCONIUM CYCLOSILICATE 10 GM POWD.PACK PO ×2 (11:18→16:59)
--- NOTE | 2023-01-28 11:25 | PC.NURSE ---
0751: Tech called RN to room for decrease BP 62/24. RN asks tech to obtain manual pressure. 0752: RN arrives to room and tech informs RN of manual BP of 67/42 on R arm and 68/42 on L arm. Pt A&O x4 on RA with no discomfort noted. 0753: Dr. Agudelo notified by RN of current situation on pt. New orders to stop Amiodarone gtt, administered 1L NS bolus and call Cardiology. RN clarifies bolus orders w/ pt's altered renal function. MD is ok with the administration of bolus. Pt placed in Trendelenburg position to help elevate BP. 0755: RN asks school attendance secretary to call Cardiology for pt. trade union secretary returns call to RN I called the exchange and they said there is no doctor highway traffic control technician until 0800. RN clarifies with unit secy I need a doctor on the phone not a call to the exchange. Please see who you can get on the phone. 0800: trade union secretary patches Keisha Wade NP with Cardiology to RN's [place]. RN updates Strategy Lead on pt's current condition and situation. She recommends to notify the Welding Machine Operator Friction and to move pt to ICU for pressors (BP support medication). 0803: Dr. Agudelo notified of Strategy Lead's recommendations to move pt to ICU. Welding Machine Operator Friction number given to Dr. Agudelo. Dr. Agudelo has placed orders for a stat CXR and 12-lead EKG as well as Lactic Acid, Troponin, & Procalcitonin lab draws. 0812: Strategy Lead to bedside. Reads EKG and looks at new CXR, still recommends moving pt to ICU. 0827: RN obtains another manual BP of 70/40. Dr. Agudelo at bedside. 0830: Dr. Mclean, Welding Machine Operator Friction, at bedside to exam pt. 0835: Welding Machine Operator Friction recommends only administering 500ml of 1L bolus that was originally ordered. 0840: Welding Machine Operator Friction gives verbal orders to this RN for Phenylephrine, Vancomycin and Ceftriaxone. RN clarifies the dose of Ceftriaxone and was informed by the Welding Machine Operator Friction that he'll write the order after reviewing the pt's chart. 0844: Pt moved to ICU by supervisor gear repair and Tech for closer monitoring. Transfer order placed
--- NOTE | 2023-01-28 11:37 | PM.IMPN ---
Progress Note: A&P Assessment and Plan (1) Hypotension: Code(s): I95.9 - Hypotension, unspecified Status: Acute Assessment and Plan: Likely from right heart failure r/o sepsis Stop AMiodarone and metoprolol CXR showed pulm edema IVF and pressors per Container Washer (2) A-fib: Qualifiers: Atrial fibrillation type: unspecified Qualified Code(s): I48.91 - Unspecified atrial fibrillation Code(s): I48.91 - Unspecified atrial fibrillation Status: Acute Assessment and Plan: Patient has history of AFib and is now in RVR On Xarelto Hold beta-harry and Amiodarone patient need digoxin vs cardioversion cardiology on board (3) RONY (acute kidney injury): Code(s): N17.9 - Acute kidney failure, unspecified Status: Acute Assessment and Plan: worsening Cr 5.8 may need dialysis nephrology following (4) CHF (congestive heart failure): Qualifiers: Heart failure chronicity: chronic Code(s): I50.9 - Heart failure, unspecified Status: Acute Assessment and Plan: Patient has history of AFib and denies any history of coronary disease. She does have history of mild mitral stenosis. But significant lower extremity edema without any pulmonary edema suggest right heart failure. Echo done on this hospitalization shows summary ? 1. Normal left ventricular size and thickness with good contractility of all segments.? Ejection fraction is 55-60%.? Grade 2 diastolic dysfunction is present. ? 2. Right ventricular chamber dimension is moderately enlarged.? Mild hypokinesis. ? 3. Left atrial chamber dimension is severely enlarged. ? 4. Right atrial chamber dimension is severely enlarged. ? 5. There is moderate mitral valve calcification. ? 6. There is? mild mitral valve stenosis.? MVA by PHT is 1.9 cm2.? There is severe annular calcification. ? 7. There is mild to moderate tricuspid valve regurgitation. ? 8. No pulmonary hypertension, estimated pulmonary arterial systolic pressure is 34 mmHg. ? 9. Dilated inferior vena cava with no collapse upon inspiration consistent with significantly elevated right atrial pressure, 20 mmHg. ? 10. Atrial fibrillation. Patient reports history of chest pain on exertion at home and may have had inferior GA Cardiology following, further evaluation deferred to cardiology (5) Cellulitis: Code(s): L03.90 - Cellulitis, unspecified Status: Acute Assessment and Plan: f/u cultures continue vanc per temperature inspector Plan DVT prophylaxis -Xarelto Stress ulcer prophylaxis -patient already on PPI Nutrition -renal and heart healthy diet Code Status -patient wishes to be Full Code Subjective Date/time seen: 01/28/23 11:37 Interval history: patient had hypotension this morning, amiodarone was stopped, ECHO showed grade II diastolic but showed RV dilation and hypokiness, with severely dilated RA. Patient transferred to ICU, cardiology informed IVF, CXR, troponin ordered Review of Systems Review of Systems: SOB, LEG SWELLING, FATIGUE, PALPITATIONS All systems reviewed & are unremarkable except as noted in HPI and below (HPI) Constitutional: Constitutional: Denies chills, Denies fatigue and Denies fever(s) Eyes: Eyes: Denies change in vision ENT: Denies dysphagia, Denies vertigo, Denies dizziness and Denies odynophagia Cardiovascular: Cardiovascular: Denies chest pain, Reports leg edema, Denies lightheadedness, Denies radiating jaw, neck or arm pain, Denies palpitations and Reports dyspnea Respiratory: Respiratory: Reports chest congestion, Denies cough, Denies excessive phlegm production and Reports dyspnea Gastrointestinal: Gastrointestinal: Denies abdominal pain, Denies dysphagia, Denies dyspepsia, Denies heartburn, Denies diarrhea, Denies nausea, Denies odynophagia and Denies vomiting Genitourinary: Genitourinary: Denies dysuria Musculoskeletal: Musculoskeletal: Denies arthralgias and
[2023-01-28] MEDS: cefTRIAXone 2 GM/NS 100 ML 2 GM/100 ML BAG IVPB (11:42)
[2023-01-28] MEDS: HYDROcodone/acetaminophen (*CRX) 5-325 MG TABLET 1 TAB PO (12:00)
[2023-01-28 12:19] LABS: Creatinine Urine 99.6 mg/dL; Urea Random Urine 139 MG/DL
[2023-01-28 12:20] LABS: Sodium Urine Random 89 meq/L
--- NOTE | 2023-01-28 12:20 | PC.NURSE ---
Family at bedside. Updated on plan care.
--- NOTE | 2023-01-28 12:25 | PC.NURSE ---
Report given to ALEXANDER Flores.
[2023-01-28 12:37] LABS: Appearance Urine Turbid (Clear); Bacteria Urine 4+ /hpf; Bilirubin Urine 1+ (Negative); Blood Urine 3+ (Negative); Color Urine Dark Yellow (Yellow); Glucose Urine UA Negative (Negative); Ketones Urine Negative (Negative); Leukocyte Esterase Ur 3+ LEU/UL (Negative); Need Manual Microscopic Reviewed; Nitrate Urine Negative (Negative); Protein Urine 4+ mg/dL (Negative); Specific Grav Ur 1.017 (1.001-1.035); Squamous Epithelial Cell Urine Few /hpf (Few); Total Protein Urine Random > 600 mg/dL; WBC Urine >100 /hpf; pH Urine 5.5 (5.0-9.0)
[2023-01-28 12:42] LABS: Add Urine Microscopic? YES
[2023-01-28 12:43] LABS: Eosinophil Urine None Seen % (None Seen); Urine Eos QC 2nd Tech Confirmed
[2023-01-28 12:55] LABS: Procalcitonin 0.3 ng/mL
--- NOTE | 2023-01-28 14:30 | PM.PNCARD ---
Progress Note: A&P Assessment and Plan (1) Hypotension: Code(s): I95.9 - Hypotension, unspecified Status: Acute Assessment and Plan: BP's 80's-90's, some lower, since admission. Unclear why patient is so hypotensive; her renal labs suggest use prerenal even though she is grossly volume overloaded. This morning SBP 65mmHg. --Does not appear septic but checked lactic acid level blood cultures, cultures NGTD --holding furosemide because of renal failure --receiving 1L NS fluid bolus --Transferring to ICU for pressors (2) A-fib: Qualifiers: Atrial fibrillation type: unspecified Qualified Code(s): I48.91 - Unspecified atrial fibrillation Code(s): I48.91 - Unspecified atrial fibrillation Status: Acute Assessment and Plan: History of paroxysmal atrial fibrillation, asymptomatic but found to have AFib RVR despite her usual metoprolol. Amiodarone gtt held by hospitalist because of hypotension. --resume amiodarone drip --hold metoprolol if systolic blood pressure less than 100 mmHg --continue Xarelto but reduce dose to 15 mg daily to to her renal function --cancel echo since she had one done in our office 01/26/2023 (3) RONY (acute kidney injury): Code(s): N17.9 - Acute kidney failure, unspecified Status: Acute Assessment and Plan: Patient has developed acute kidney injury over the summer, unclear etiology. No change in her diuretics dose. Does have frequent loose bowel movements a may be try on that basis well. More hypotensive today, so transferred to ICU for pressors --Dr. Cueva consulted, appreciate recs --daily BMP (4) Chronic anticoagulation: Code(s): Z79.01 - intermediate project manager (current) use of anticoagulants Status: Acute Assessment and Plan: Takes Xarelto, will reduce dose to 15 mg daily due to acute kidney injury (5) IGOR (obstructive sleep apnea): Code(s): G47.33 - Obstructive sleep apnea (adult) (pediatric) Status: Acute Assessment and Plan: Has severe IGOR diagnosed in 2021, did not receive CPAP equipment. Also has moderate obstruction by PFTs in 2020. May benefit from treatment since she does have right ventricular enlargement and hypokinesis. (6) Elevated brain natriuretic peptide (BNP) level: Code(s): R79.89 - Other specified abnormal findings of blood chemistry Status: Acute Assessment and Plan: elevated pro-BNP noted, but CXR w/o CHF. Grossly volume overloaded but holding diuretics.. No pulmonary edema to push me toward diuretic tx. --Awaiting Dr. Cueva's opinion re: diuretic needs. ? 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 Even may need to change her Xarelto to warfarin because of this type of mitral valve disease. Subjective Date/time seen: 01/28/23 08:02 Interval history: Cardiology follow up for CHF, AF Patient markedly hypotensive this morning. Per RN report, she stopped making urine overnight. SBP 65. She is receiving fluids. She is A&O x 4 and is asymptomatic at the time of my evaluation. Review of Systems Constitutional: Constitutional: Denies fever(s) and Reports lethargy Eyes: Eyes: Reports no additional eye complaints ENT: Denies epistaxis Cardiovascular: Cardiovascular: Denies chest pain, Reports pedal edema, Reports leg edema, Denies lightheadedness, Denies palpitations, Reports dyspnea and Reports dyspnea on exertion Respiratory: Respiratory: Denies chest congestion, Denies cough, Reports dyspnea and Reports dyspnea on exertion Gastrointestinal: Gastrointestinal: Denies abdominal pain, Denies hematochezia and Reports diarrhea (Frequent loose bowel movements) Genitourinary: Genitourinary: Reports urinary incontinence Musculoskeletal: Musculoskeletal: Reports no additional musculoskeletal complaints, Repor
[2023-01-28] MEDS: AMIODARONE 360 MG/D5W 200 ML 360 MG/200 ML BAG 16.67 MG IV CONT (16:32)
[2023-01-28] MEDS: RIVAROXABAN 15 MG TABLET PO (16:59)
[2023-01-28 18:14] LABS: Hepatitis B Surface Anti Res Negative
[2023-01-28] MEDS: TOLNAFTATE 1% POWDER 45 GM BTL 1 APPLIC TOPICAL (20:12)
[2023-01-28] MEDS: NOREPINEPHRINE 8 MG/D5W 250 ML 8 MG/250 ML BAG 9.38 MG IV CONT (20:59)
[2023-01-28 21:14] LABS: Hematocrit 50.3 % (37.0-47.0); Hemoglobin 15.5 g/dL (12.0-15.0); Mean Corpuscular HGB Conc 30.8 g/dl (32-36); Mean Corpuscular Volume 97.3 fl (80-100); Platelet Count Result 160 k/mm3 (150-375); Red Blood Count 5.17 M/mm3 (4.2-5.4); Red Cell Distribution Width 18.7 % (11.5-14.5); White Blood Count 18.7 K/mm3 (4.5-10.0)
[2023-01-28 21:25] LABS: Anion Gap 12 mmol/L (8-16); Blood Urea Nitrogen 86 mg/dL (7-17); Calcium 9.2 mg/dL (8.4-10.2); Carbon Dioxide 19 mmol/L (22-30); Chloride 95 mmol/L (98-107); Estimated CRCL calculation 8 ml/min; Estimated Glomerular Filt Rate 6; Glucose 109 mg/dL (65-110); Potassium 5.6 mmol/L (3.4-5.0); Sodium 126 mmol/L (137-145)
[2023-01-28] MEDS: AMIODARONE 150 MG/D5W 100 ML 150 MG/100 ML BAG 600 MG IV CONT (23:13)
[2023-01-28] MEDS: ALBUMIN HUMAN 25% 25 GM/100 ML 100 ML IVPB (23:27)
[2023-01-28] MEDS: SODIUM BICARBONATE 8.4% 50 MEQ/50 ML SYRINGE IV PUSH (23:27)
[2023-01-29] VITALS (38 sets, daily range): BP systolic 70–138; BP diastolic 46–93; PULSE 104–143; RESP 12–21; TEMP 36.5–36.6; O2SAT 92–100
[2023-01-29] MEDS: AMIODARONE 360 MG/D5W 200 ML 360 MG/200 ML BAG 33.33 MG IV CONT ×3 (01:58→13:50)
--- NOTE | 2023-01-29 02:42 | PC.NURSE ---
Patient decompensating with blood pressures in 60's systolic. Neosynephrine maxed out at [address] Mclean notified and orders received to initiate Levophed and obtain CBC and BMP and call with results. Lab values obtained and results called to Dr. Mclean. Patient now with heart rate of Afib in the 130s to 140s. Received orders for an Amiodarone bolus and to increase Amiodarone drip to 1 mg/min; albumin 25% once; and have pharmacy change Neosynephrine mixture from D5 to 0.9% NS due to low sodiums. Amiodarone bolus administered and patient's heart rate remains in Afib at 115s to 120s. Patient denies complaints at this time and remains asymptomatic with low blood pressures and rapid heart rate. Will continue to monitor.
[2023-01-29] MEDS: LEVOTHYROXINE SODIUM 112 MCG TABLET PO (05:28)
[2023-01-29 05:30] LABS: Basophils Percent Auto 0.2 % (0.2-1.2); Eosinophils Percent Auto 0.1 % (0-4.4); Hematocrit 48.1 % (37.0-47.0); Hemoglobin 15.2 g/dL (12.0-15.0); Immature Granulocyte Percent A 0.6 % (0-0.5); Lymphocytes Absolute Auto 1.32 K/mm3 (0.9-3.2); Lymphocytes Percent Auto 8.1 % (18.3-44.2); Mean Corpuscular HGB Conc 31.6 g/dl (32-36); Mean Corpuscular Hemoglobin 29.7 pg (26-34); Mean Corpuscular Volume 94.1 fl (80-100); Mean Platelet Volume 9.7 fl (7.4-10.4); Monocytes Absolute Auto 1.1 K/mm3 (0.1-0.6); Monocytes Percent Auto 6.5 % (2.6-8.5); Neutrophils Absolute Auto 13.8 K/mm3 (1.3-6.7); Neutrophils Percent Auto 84.5 % (45.5-73.1); Platelet Count Result 165 k/mm3 (150-375); Red Blood Count 5.11 M/mm3 (4.2-5.4); Red Cell Distribution Width 18.7 % (11.5-14.5); White Blood Count 16.3 K/mm3 (4.5-10.0)
[2023-01-29 05:46] LABS: Lactic Acid Reflex 1.8 mmol/L (0.7-2.0)
[2023-01-29 05:46] LABS: Alanine Aminotransferase 20 U/L (6-35); Albumin Level 3.2 g/dL (3.5-5.1); Alkaline Phosphatase 90 U/L (38-126); Anion Gap 11 mmol/L (8-16); Aspartate Amino Transferase 34 U/L (14-36); Bilirubin,Total 1.1 mg/dL (0.2-1.3); Blood Urea Nitrogen 85 mg/dL (7-17); Carbon Dioxide 24 mmol/L (22-30); Chloride 93 mmol/L (98-107); Estimated CRCL calculation 8 ml/min; Estimated Glomerular Filt Rate 6; Glucose 125 mg/dL (65-110); Magnesium 2.5 mg/dL (1.6-2.3); Phosphorus 7.5 mg/dL (2.5-4.5); Potassium 5.2 mmol/L (3.4-5.0); Sodium 128 mmol/L (137-145)
[2023-01-29 05:59] LABS: Vancomycin Random 17.3 ug/mL (10-20)
[2023-01-29] MEDS: ONDANSETRON INJ 4 MG/2 ML VIAL IV PUSH (07:22)
[2023-01-29] MEDS: AMIODARONE 150 MG/D5W 100 ML 150 MG/100 ML BAG 600 MG IV CONT (09:03)
[2023-01-29] MEDS: PANTOPRAZOLE 40 MG TABLET PO (09:04)
[2023-01-29] MEDS: cefTRIAXone 2 GM/NS 100 ML 2 GM/100 ML BAG IVPB (09:05)
[2023-01-29] MEDS: MIDODRINE HCL 2.5 MG TABLET 5 MG PO ×2 (09:05→13:22)
[2023-01-29] MEDS: DIGOXIN INJ 250 MCG/ML 2 ML AMP (*BKC) IV PUSH (09:06)
[2023-01-29] MEDS: TOLNAFTATE 1% POWDER 45 GM BTL 1 APPLIC TOPICAL (09:07)
[2023-01-29] MEDS: TIMOLOL MALEATE 0.5% OP SOLN 5 ML BOTTLE 1 DROP EACH EYE (09:07)
[2023-01-29] MEDS: LATANOPROST 0.005% OP SOLN 2.5 ML BTL 1 DROP EACH EYE (09:07)
--- NOTE | 2023-01-29 09:18 | WPDINTPN ---
Progress Note: A&P Assessment and Plan (1) Hypotension: Code(s): I95.9 - Hypotension, unspecified Status: Acute Assessment and Plan: Patient's hypotension is likely multifactorial with a combination of atrial fibrillation, congestive heart failure, cardiogenic and possible component of sepsis as patient does have little bit of cellulitis on her right leg and UTI. She is significantly volume overloaded hence was given cautious amount of IV fluids. Her blood pressure remains low despite high dose of Tom-Synephrine. I have added Levophed. Patient was given 25% albumin bolus overnight. I have added stress dose hydrocortisone. Her AFib with RVR limits choice of vasopressors and inotropes (2) A-fib: Qualifiers: Atrial fibrillation type: unspecified Qualified Code(s): I48.91 - Unspecified atrial fibrillation Code(s): I48.91 - Unspecified atrial fibrillation Status: Acute Assessment and Plan: Patient has history of AFib and is now in RVR which has been difficult to control She has required several amiodarone boluses Continue amiodarone infusion at 1 milligram/minute She is on on Xarelto Off beta-harry due to shock Will give 1 dose of digoxin and discussed with Cardiology (3) RONY (acute kidney injury): Code(s): N17.9 - Acute kidney failure, unspecified Status: Acute Assessment and Plan: Patient presented with elevated creatinine of 4.5 which has increased to 6.9. Patient has minimal urine output Nephrology is following and workup has been ordered Renal ultrasound was unremarkable Patient is currently on 2 vasopressors to get blood pressure up She will likely need JACK SETTER due to worsening renal function, oliguria and volume overload but will likely not tolerate intermittent hemodialysis due to shock and AFib with RVR. I have discussed with game developer and we both agree the patient should be transferred to tertiary facility for CRRT. Patient does have a temporary temporary dialysis catheter that was placed yesterday in anticipation of need for hemodialysis. She is on Lokelma (4) CHF (congestive heart failure): Qualifiers: Heart failure chronicity: chronic Code(s): I50.9 - Heart failure, unspecified Status: Acute Assessment and Plan: Patient has history of AFib and denies any history of coronary disease. She does have history of mild mitral stenosis. But significant lower extremity edema without any pulmonary edema suggest right heart failure. Echo done on this hospitalization shows summary ? 1. Normal left ventricular size and thickness with good contractility of all segments.? Ejection fraction is 55-60%.? Grade 2 diastolic dysfunction is present. ? 2. Right ventricular chamber dimension is moderately enlarged.? Mild hypokinesis. ? 3. Left atrial chamber dimension is severely enlarged. ? 4. Right atrial chamber dimension is severely enlarged. ? 5. There is moderate mitral valve calcification. ? 6. There is? mild mitral valve stenosis.? MVA by PHT is 1.9 cm2.? There is severe annular calcification. ? 7. There is mild to moderate tricuspid valve regurgitation. ? 8. No pulmonary hypertension, estimated pulmonary arterial systolic pressure is 34 mmHg. ? 9. Dilated inferior vena cava with no collapse upon inspiration consistent with significantly elevated right atrial pressure, 20 mmHg. ? 10. Atrial fibrillation. Patient reports history of chest pain on exertion at home and may have had inferior [facility] following Ionotropic therapy limited by AFib with RVR (5) Cellulitis: Code(s): L03.90 - Cellulitis, unspecified Status: Acute Assessment and Plan: She does a appear to have some cellulitis of right lower extremity. Although the or blisters but the mostly fluid-filled secondary to edema and are not suggestive of deeper soft tissue infection. She has normal WBC and is afebrile Her lactic acid procalcitonin level were low. Tray
[2023-01-29] MEDS: SODIUM ZIRCONIUM CYCLOSILICATE 10 GM POWD.PACK PO (09:27)
--- NOTE | 2023-01-29 11:35 | P.PNNP_ITS ---
Progress Note: A&P Assessment and Plan (1) RONY (acute kidney injury): Code(s): N17.9 - Acute kidney failure, unspecified Status: Acute Assessment and Plan: * etiology not clear.... * creatinine normal in August 2022 * issues with hypotension noted (but was hypertensive on admission by ER records) * no other previous symptoms * no evidence of volume depletion noted (in fact, significant LE swelling/edema noted) * despite elevated BNP, no evidence of pulmonary edema on admission * evaluation to date: * renal ultrasound without obstruction * UA suggestive of infection * nephrotic range proteinuria present * urine eosinophils negative * urine electrolytes prerenal (by FeUrea) * CPK not significantly elevated * serological testing in progress * she is making very little urine output which is quite concerning * 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 but given her need for significan vasopressor therapy, she would likely benefit from CRRT * likely to be transferred to another facility with capabilities of CRRT * consider renal biopsy once more stable(?) -- but on anticoagulation * follow repeat labs and UOP (2) Hyperkalemia: Code(s): E87.5 - Hyperkalemia Status: Acute Assessment and Plan: * presumably due to RONY, REG-I use, and supplemental potassium * medical management for now * follow repeat levels (3) Hypotension: Code(s): I95.9 - Hypotension, unspecified Status: Acute Assessment and Plan: * following IV metoprolol given in ER, she has been persistently hypotensive since... * trial of IVF boluses with limited response * other contributing factors -- atrial fibrillation and CHF * holding diuretics and BP medications * to be initiated on vasopressor therapy * early sepsis versus cardiogenic versus other?? * follow culture data * empiric antibiotic therapy (4) Cellulitis: Code(s): L03.90 - Cellulitis, unspecified Status: Acute Assessment and Plan: * suggested by exam * on antibiotic therapy * follow culture data (5) A-fib: Qualifiers: Atrial fibrillation type: unspecified Qualified Code(s): I48.91 - Unspecified atrial fibrillation Code(s): I48.91 - Unspecified atrial fibrillation Status: Acute Assessment and Plan: * known history * given suboptimal hemodynamics, currently on amiodarone gtt * already on anticoagulation * recent Echo results noted * Cardiology following (6) IGOR (obstructive sleep apnea): Code(s): G47.33 - Obstructive sleep apnea (adult) (pediatric) Status: Acute Assessment and Plan: * CPAP at nighttime Discussed case with Dr. Mclean earlier today Will continue to follow. Subjective Date/time seen: 01/29/23 11:35 Interval history: Follow-up for acute kidney injury/acute renal failure. Renal function continues to deteriorate associated with almost anuria; on significant vasopressor requirement in the last 24 hours with phenylephrine and norepinephrine; remains on IV amiodarone as well; despite these ongoing issues, she appears in no acute distress aside from pain in her right lower extremity; will likely need dialytic intervention but given her hemodynamic instability and vasopressor needs, noted plans for transfer to another facility that has CRRT capabilities. Exam Narrative: General: elderly but WD/WN female in NAD Heart: IRRR, tachycardic, normal S1 and S2; no rub Lungs: clear anteriorly but decreas
--- NOTE | 2023-01-29 11:35 | PM.PNNEP ---
Progress Note: A&P Assessment and Plan (1) RONY (acute kidney injury): Code(s): N17.9 - Acute kidney failure, unspecified Status: Acute Assessment and Plan: etiology not clear.... creatinine normal in August 2022 issues with hypotension noted (but was hypertensive on admission by ER records) no other previous symptoms no evidence of volume depletion noted (in fact, significant LE swelling/edema noted) despite elevated BNP, no evidence of pulmonary edema on admission evaluation to date: renal ultrasound without obstruction UA suggestive of infection nephrotic range proteinuria present urine eosinophils negative urine electrolytes prerenal (by FeUrea) CPK not significantly elevated serological testing in progress she is making very little urine output which is quite concerning 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 but given her need for significan vasopressor therapy, she would likely benefit from CRRT likely to be transferred to another facility with capabilities of CRRT consider renal biopsy once more stable(?) -- but on anticoagulation follow repeat labs and UOP (2) Hyperkalemia: Code(s): E87.5 - Hyperkalemia Status: Acute Assessment and Plan: presumably due to RONY, REG-I use, and supplemental potassium medical management for now follow repeat levels (3) Hypotension: Code(s): I95.9 - Hypotension, unspecified Status: Acute Assessment and Plan: following IV metoprolol given in ER, she has been persistently hypotensive since... trial of IVF boluses with limited response other contributing factors -- atrial fibrillation and CHF holding diuretics and BP medications to be initiated on vasopressor therapy early sepsis versus cardiogenic versus other?? follow culture data empiric antibiotic therapy (4) Cellulitis: Code(s): L03.90 - Cellulitis, unspecified Status: Acute Assessment and Plan: suggested by exam on antibiotic therapy follow culture data (5) A-fib: Qualifiers: Atrial fibrillation type: unspecified Qualified Code(s): I48.91 - Unspecified atrial fibrillation Code(s): I48.91 - Unspecified atrial fibrillation Status: Acute Assessment and Plan: known history given suboptimal hemodynamics, currently on amiodarone gtt already on anticoagulation recent Echo results noted Cardiology following (6) IGOR (obstructive sleep apnea): Code(s): G47.33 - Obstructive sleep apnea (adult) (pediatric) Status: Acute Assessment and Plan: CPAP at nighttime Discussed case with Dr. Mclean earlier today Will continue to follow. Subjective Date/time seen: 01/29/23 11:35 Interval history: Follow-up for acute kidney injury/acute renal failure. Renal function continues to deteriorate associated with almost anuria; on significant vasopressor requirement in the last 24 hours with phenylephrine and norepinephrine; remains on IV amiodarone as well; despite these ongoing issues, she appears in no acute distress aside from pain in her right lower extremity; will likely need dialytic intervention but given her hemodynamic instability and vasopressor needs, noted plans for transfer to another facility that has CRRT capabilities. Exam Narrative: General: elderly but WD/WN female in NAD Heart: IRRR, tachycardic, normal S1 and S2; no rub Lungs: clear anteriorly but decreased at bases Abdomen: soft, nontender, nondistended, positive bowel sounds Extremities: no cyanosis or clubbing; 2 - 3+ edema Skin: RLE erthema/warmth; blisters in bilateral feet noted Objective Data Vital Signs Vital Signs: Vital Signs Temp Pulse Resp BP Pulse Ox O2 Del Method O2 Flow Rate 01/29/23 11:28 111 H 95/78 L 01/29/23 10:46 75/55 L 01/29/23 11:07 115 H 108/78 01/29/23 09:00 120 H 94/82 L 01/29/23 09:38 106 H 99/64 L 01/29/23
[2023-01-29] MEDS: NOREPINEPHRINE 8 MG/D5W 250 ML 8 MG/250 ML BAG 18.75 MG IV CONT (11:48)
--- NOTE | 2023-01-29 13:20 | PM.PNCARD ---
Progress Note: A&P Assessment and Plan (1) Hypotension: Code(s): I95.9 - Hypotension, unspecified Status: Acute Assessment and Plan: BP's 80's-90's, some lower, since admission. Unclear why patient is so hypotensive; her renal labs suggest use prerenal even though she is grossly volume overloaded. This morning SBP 65mmHg. --Does not appear septic but checked lactic acid level blood cultures, cultures NGTD --holding furosemide because of renal failure --remains on norepinephrine and phenylephrine in shock. Mixed picture a leukocytosis with left shift. This would not be consistent clear with cardiogenic despite RV dysfunction. Preserved LV systolic function EF 55-60% with RV enlargement and hypokinesis. Mild flat troponin elevation most likely demand ischemia and acute renal failure as opposed to acute coronary syndrome and/or plaque rupture. However, while she clinically appears volume overloaded with significant edema given renal failure and shock diuresis has been held. Precise volume status remains unclear and very difficult to assess. As discussed with critical care PA catheter may be reasonable to assess intravascular volume certainly pending benign response with dialysis. Acute respiratory failure is under primary component of the clinical picture at this time with predominant Right heart failure picture. -nonetheless, patient remains critically ill and requires additional supportive therapy which not available at this institution. (2) A-fib: Qualifiers: Atrial fibrillation type: unspecified Qualified Code(s): I48.91 - Unspecified atrial fibrillation Code(s): I48.91 - Unspecified atrial fibrillation Status: Acute Assessment and Plan: History of paroxysmal atrial fibrillation, persistent RVR on IV Amiodarone marginal control remains tachycardic. asymptomatic but found to have AFib RVR despite her usual metoprolol. Amiodarone gtt held by hospitalist because of hypotension. --for now, continue IV amiodarone. --hold metoprolol if systolic blood pressure less than 100 mmHg --continue Xarelto but reduce dose to 15 mg daily to to her renal function --EF preserved 55-60%. --digoxin x1 provided by Critical Care. Avoid additional dosing given renal failure and risk for toxicity. (3) RONY (acute kidney injury): Code(s): N17.9 - Acute kidney failure, unspecified Status: Acute Assessment and Plan: Patient has developed acute kidney injury over the summer, unclear etiology. No change in her diuretics dose. Does have frequent loose bowel movements a may be try on that basis well. --Dr. 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 Dose reduced to 50 mg however alternative anticoagulation we recommended. (5) IGOR (obstructive sleep apnea): Code(s): G47.33 - Obstructive sleep apnea (adult) (pediatric) Status: Acute Assessment and Plan: Has severe IGOR diagnosed in 2021, did not receive CPAP equipment. Also has moderate obstruction by PFTs in 2020. May benefit from treatment since she does have right ventricular enlargement and hypokinesis. (6) Elevated brain natriuretic peptide (BNP) level: Code(s): R79.89 - Other specified abnormal findings of blood chemistry Status: Acute Assessment and Plan: elevated pro-BNP noted, multifactorial etiology but CXR w/o CHF. Grossly volume overloaded but holding diuretics.. No pulmonary edema to push me toward diuretic tx. Volume status very difficult to assess in this patient. 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 Even may need to change her Xarelto to warfarin because of this type of mitral v
[2023-01-29] MEDS: HYDROCORTISONE SODIUM SUCCINATE 100 MG/2 ML VIAL IV PUSH (13:22)
--- NOTE | 2023-01-29 13:38 | PM.TDS ---
Transfer Discharge Sum: Prov Provider Date of admission: 01/26/23 18:17 Primary care physician: Star Hart DO Admitting clinician: Erika Ibarra MD Consults: 01/26/23 18:20 Consult to Physician Routine Comment: Consulting Provider: Mony Hooks Reason for consultation: a-fib with RVR Has provider been notified: Yes 01/27/23 Consult to Physician Routine Comment: Spoke with Dr Cueva @ [phone]) Consulting Provider: Dimitrios Cueva square dance caller/MD group to consult: NEPHROLOGY Reason for consultation: RONY Has provider been notified: Yes 01/28/23 Wound/ET Consult Routine Reason for Consult:: Open blisters DS: Admitting Diagnosis Discharge Date 01/29/23 Admitting Diagnosis Afib RVR DS: Discharge Diagnosis Discharge Diagnosis (1) Hypotension: Code(s): I95.9 - Hypotension, unspecified Status: Acute (2) RONY (acute kidney injury): Code(s): N17.9 - Acute kidney failure, unspecified Status: Acute (3) A-fib: Qualifiers: Atrial fibrillation type: unspecified Qualified Code(s): I48.91 - Unspecified atrial fibrillation Code(s): I48.91 - Unspecified atrial fibrillation Status: Acute (4) CHF (congestive heart failure): Qualifiers: Heart failure chronicity: chronic Code(s): I50.9 - Heart failure, unspecified Status: Acute Transfer Discharge Sum: Med Medications Active and Home Medications: Home Medications metoprolol tartrate 25 mg tablet 25 mg PO BID #180 tabs 04/05/19 [Rx Confirmed 01/26/23] latanoprost 0.005 % eye drops 1 drop ophthalmic (eye) DAILY 05/21/19 [History Confirmed 01/26/23] rivaroxaban 20 mg tablet (Xarelto) 20 mg PO DAILY 05/21/19 [History Confirmed 01/26/23] timolol 0.5 % eye drops 1 drop ophthalmic (eye) Q12H 05/21/19 [History Confirmed 01/26/23] vit C 250 mg-vit E 90 mg-zinc 40 mg-copper 1 [id number] capsule (PreserVision AREDS-2) 1 tablet PO BID 05/21/19 [History Confirmed 01/26/23] furosemide 40 mg tablet (Lasix) 40 mg PO QAM 07/08/21 [History Confirmed 01/26/23] potassium chloride 20 mEq tablet,extended release 20 meq PO DAILY 07/08/21 [History Confirmed 01/26/23] vitamin B complex (B Complex-Vitamin B12 tablet) 1 tablet PO DAILY 07/08/21 [History Confirmed 01/26/23] meclizine 12.5 mg tablet 12.5 mg PO TID PRN dizziness #14 tabs 09/20/22 [Rx Confirmed 01/26/23] lisinopril 10 mg tablet 10 mg PO DAILY #90 tabs 09/26/22 [Rx Confirmed 01/26/23] omeprazole 20 mg capsule,delayed release 20 mg PO DAILY #90 caps 10/18/22 [Rx Confirmed 01/26/23] levothyroxine 112 mcg tablet 112 mcg PO DAILY #90 tabs 11/11/22 [Rx Confirmed 01/26/23] Active Medications Hydrocodone Bitart/Acetaminophen (Hydrocodone/Acetaminophen (*Crx) 5-325 Mg Tablet) 1 tab PO Q4H PRN PRN Reason: Pain Rated 4-6 Last Admin: 01/28/23 12:00 Dose: 1 tab Hydrocortisone Sodium Succinate (Hydrocortisone Sodium Succinate 100 Mg/2 Ml Vial) 100 mg IV PUSH Q8HR JORGE Last Admin: 01/29/23 13:22 Dose: 100 mg Amiodarone HCl/Dextrose (Nexterone 360 Mg/D5w 200 Ml) 360 mg in 200 mls @ 33.333 mls/hr IV CONT .Q6H JORGE Last Infusion: 01/29/23 13:23 Dose: 1 mg/min, 33.33 mls/hr Ceftriaxone Sodium (Rocephin 2 Gm/Ns 100 Ml) 2 gm in 100 mls @ 200 mls/hr IVPB DAILY JORGE Last Admin: 01/29/23 09:05 Dose: 200 mls/hr Norepinephrine Bitartrate (Levophed 8 Mg/D5w 250 Ml) 8 mg in 250 mls @ 18.75 mls/hr IV CONT .[id number] JORGE; Protocol Last Titration: 01/29/23 13:31 Dose: 9 mcg/min, 16.88 mls/hr Phenylephrine HCl 50 mg/ (Sodium Chloride) 255 mls @ 42.84 mls/hr IV CONT .[id number] [facility]; Protocol Last Titration: 01/29/23 11:07 Dose: 140 mcg/min, 42.84 mls/hr Latanoprost (Latanoprost 0.005% Op Soln 2.5 Ml Btl) 1 drop EACH EYE DAILY [facility] Last Admin: 01/29/23 09:07 Dose: 1 drop Levothyroxine Sodium (Levothyroxine Sodium 112 Mcg Tablet) 112 mcg PO DAILY@0630 [facility] Last Admin: 01/29/23 05:28 Dose: 112 mcg Metoprolol Tartrate (Meto
[2023-02-01 00:01] LABS: Kappa\\Lambda Light Chains 1.39 (0.26-1.65); Lambda Light Chain 80.8 mg/L (5.7-26.3)
[2023-02-01 01:43] LABS: Anti Glomerular Basement Memb <1.0 AI (<1.0)
[2023-02-01 14:45] LABS: Albumin 2.7 g/dL (3.8-4.8); Alpha 1 Globulin 0.3 g/dL (0.2-0.3); Alpha 2 Globulin 0.6 g/dL (0.5-0.9); Beta 1 Globulin 0.4 g/dL (0.4-0.6); Gamma Globulin 1.2 g/dL (0.8-1.7); Protein, Total 5.6 g/dL (6.1-8.1)
[2023-02-01 22:22] LABS: ANCA Screen Negative (Negative)
[2023-02-03 02:48] LABS: Creatinine, Random Urine 97 mg/dL (20-275); Total Protein/Creatinine Ratio 7124 mg/g creat (24-184)
[2023-02-03 05:26] LABS: Hepatitis B Core Ab Total Nonreactive (Nonreactive)
== END 2023-01-29 14:11 | disposition short-term general hospital (02) | DRG 683 ==
LOC: ANHED 18:27 → ANHIMU 21:59 → ANHICU 01-28 12:56 → ANHIMU 01-31 12:32
PROVIDERS: Internal Medicine; Internal Medicine Cardiovascular Disease; Internal Medicine Nephrology; Admitting Provider General Practice; Emergency Provider Nurse Practitioner Family; PCP Internal Medicine; Visit Provider Internal Medicine
DX: N17.9 Acute kidney failure, unspecified (principal); L03.115 Cellulitis of right lower limb; N39.0 Urinary tract infection, site not specified; Z68.41 Body mass index [BMI] 40.0-44.9, adult; B96.20 Unspecified Escherichia coli [E. coli] as the cause of diseases classified elsewhere; I95.9 Hypotension, unspecified; I48.91 Unspecified atrial fibrillation; E66.9 Obesity, unspecified; E87.5 Hyperkalemia; E03.9 Hypothyroidism, unspecified; E11.9 Type 2 diabetes mellitus without complications; H40.9 Unspecified glaucoma; I11.0 Hypertensive heart disease with heart failure; I50.812 Chronic right heart failure; I48.0 Paroxysmal atrial fibrillation; I05.0 Rheumatic mitral stenosis; K21.9 Gastro-esophageal reflux disease without esophagitis; Z90.49 Acquired absence of other specified parts of digestive tract; Z79.01 Long term (current) use of anticoagulants; Z96.651 Presence of right artificial knee joint; Z87.891 Personal history of nicotine dependence; Z99.89 Dependence on other enabling machines and devices
CPT/HCPCS: 36415; 71045; 71046; 76775; 80048; 80053; 80202; 81001; 81050; 82550; 82570; 83520; 83605; 83735; 83880; 83883; 84100; 84145; 84155; 84156; 84165; 84166; 84300; 84443; 84484; 84540; 85025; 85027; 85610; 85730; 85999; 86036; 86038; 86160; 86225; 86704; 86706; 87040; 87077; 87086; 87186; 87340; 93005; 96361; 96374; 96375; 99285; A9270; C1751; C1752; C8929; J0282; J0696; J1160; J1720; J2371; J2405; J3370; J7030; J7050; J7060; P9047; Q9957